=== PATIENT | female | born 1945 | race Caucasian/White ===

== ENCOUNTER 2017-02-28 11:35 | Inpatient (IN) | payer MEDICARE, OTHER ==
--- NOTE | 2017-02-28 11:51 | PDOC ---
History of Present Illness - General Chief Complaint: Pain, Acute Stated Complaint: LT LEG PAIN Time Seen by Provider: 02/28/17 11:50 - History of Present Illness Initial Comments: 02/28/17 11:50 Ms. Burnette is a 72 yo female with a significant past medical history of several prior strokes on coumadin, DM, HTN, and hypercholesterolemia who presents to the emergency department with a 3 day history of upper left leg pain she says occurs only when she moves. 1 week ago she reports falling from a stool on top of her bed while trying to clear a bug from the ceiling. Denies any dizziness or unsteadyness - says that she lost her balance on top of the stool, causing her fall. She says that she had significant pain at this time and stayed on the ground for about 5 minutes before getting up. Not sure if she hit her head or not but she denies any LOC or double visiton. She has been ambulating after this but says she has been experiencing a lot of back pain since. Following her fall she reports a week of diarrhea in addition to various aches and pains in her arms and legs. Denies any recent travel, other illness, or hospital visits. Allergies: NKDA Past History - Past Medical History Allergies/Adverse Reactions: Allergies Allergy/AdvReac Type Severity Reaction Status Date / Time No Known Allergies Allergy Verified 02/28/17 11:44 Home Medications: Ambulatory Orders NK [No Known Home Medication] 02/28/17 Diabetes: Yes - Surgical History Abdominal Surgery: Yes (pancreatic.) - Suicide/Smoking/Psychosocial Hx Smoking History: Current every day smoker Number of Cigarettes Smoked Daily: 20 Information on smoking cessation initiated: No Hx Alcohol Use: No Drug/Substance Use Hx: No Review of Systems - Review of Systems Comments:: 02/28/17 11:50 GENERAL/CONSTITUTIONAL: No fever or chills. No weakness. HEAD, EYES, EARS, NOSE AND THROAT: No change in vision. No ear pain or discharge. No sore throat. CARDIOVASCULAR: No chest pain or shortness of breath RESPIRATORY: No cough, wheezing, or hemoptysis. GASTROINTESTINAL: +1 week of nausea with diarrhea, no constipation. GENITOURINARY: No dysuria, frequency, or change in urination. MUSCULOSKELETAL: Lower back pain as well as upper left lower extremity pain on the posterior side. SKIN: No rash NEUROLOGIC: No headache, vertigo, loss of consciousness, or change in strength/ sensation. ENDOCRINE: No increased thirst. No abnormal weight change HEMATOLOGIC/LYMPHATIC: No anemia, easy bleeding, or history of blood clots. ALLERGIC/IMMUNOLOGIC: No hives or skin allergy. *Physical Exam - Vital Signs Last Vital Signs Temp Pulse Resp BP Pulse Ox 97.5 F L 79 18 153/76 97 02/28/17 11:40 02/28/17 11:40 02/28/17 11:40 02/28/17 11:40 02/28/17 11:40 - Physical Exam Comments: 02/28/17 11:51 GENERAL: Awake, alert, and fully oriented, in no acute distress HEAD: No signs of trauma, normocephalic, atraumatic EYES: PERRLA, EOMI, sclera anicteric, conjunctiva clear ENT: Auricles normal inspection, hearing grossly normal, nares patent, oropharynx clear without exudates. Moist mucosa NECK: Normal ROM, supple, no lymphadenopathy, JVD, or masses LUNGS: No distress, speaks full sentences, clear to auscultation bilaterally HEART: Regular rate and rhythm, normal S1 and S2, no murmurs, rubs or gallops, peripheral pulses normal and equal bilaterally. ABDOMEN: Soft, nontender, normoactive bowel sounds. No guarding, no rebound. No masses EXTREMITIES: +C-spine tenderness with central lumbar tenderness as well. Additional swelling noted on upper LLE with hematoma visible slightly caudal to swelling. Varies small similarly aged hematomas noted to knees and arms as well that patient says are also from fall. NEUROLOGICAL: Cranial nerves II through XII grossly intact. Normal speech, normal gait, no focal sensorimotor deficits SKIN: Warm, Dry, normal turgor, no rashes or lesions noted. ED Treatment Course - LABORATORY CBC & Chemistry Diagram: 02/28/17 12:00 02/28/17 12:00 Medical Decision Making - Medical Decision Making 02/28/17 14:22 Patient presents for acute LLE leg pain. While taking HPI history of fall from height ellucidated and patient expressed cervical and lumbar tenderness as well. Head CT, c-spine CT, and Abd/Pelvic CT with reconstitution of lumbar area ordered for evaluation with concurrent CXR. 02/28/17 16:03 All imaging negative for acute pathology, patient's creatinine noted to be elevated to 2.4 as below. PCP's office consulted, labs approximately a year ago had creatinine level of 1.09. Patient has JOSÉ MIGUEL, consulting hospitalist for possible admission. Laboratory Results - last 24 hr 02/28/17 02/28/17 02/28/17 12:00 12:00 12:00 WBC 12.7 H RBC 3.58 L Hgb 10.4 L Hct 31.4 L MCV 87.8 MCH 29.0 MCHC 33.1 RDW 14.3 Plt Count 225 MPV 8.0 Neutrophils % 78.2 Lymphocytes % 12.8 Monocytes % 8.2 Eosinophils % 0.6 Basophils % 0.2 PT with INR 29.10 H INR 2.58 H Sodium Potassium Chloride Carbon Dioxide Anion Gap BUN Creatinine Creat Clearance w eGFR Random Glucose Calcium Total Bilirubin AST ALT Alkaline Phosphatase Total Protein Albumin Urine Color Yellow Urine Appearance Slcloudy Urine pH 5.0 Urine Protein 2+ H Urine Glucose (UA) 3+ H Urine Ketones Negative Urine Blood 2+ H Urine Nitrite Negative Urine Bilirubin Negative Urine Urobilinogen Negative Urine RBC 5 Urine WBC 9 Ur Epithelial Cells Few Urine Bacteria Rare Hyaline Casts 3 02/28/17 12:00 WBC RBC Hgb Hct MCV MCH MCHC RDW Plt Count MPV Neutrophils % Lymphocytes % Monocytes % Eosinophils % Basophils % PT with INR INR Sodium 138 Potassium 4.5 Chloride 103 Carbon Dioxide 27 Anion Gap 8 BUN 38 H Creatinine 2.4 H Creat Clearance w eGFR 19.84 Random Glucose 290 H Calcium 8.1 L Total Bilirubin 0.3 AST 30 ALT 17 Alkaline Phosphatase 72 Total Protein 6.2 L Albumin 3.0 L Urine Color Urine Appearance Urine pH Urine Protein Urine Glucose (UA) Urine Ketones Urine Blood Urine Nitrite Urine Bilirubin Urine Urobilinogen Urine RBC Urine WBC Ur Epithelial Cells Urine Bacteria Hyaline Casts 02/28/17 16:09 *DC/Admit/Observation/Transfer Diagnosis at time of Disposition: Acute kidney injury - Discharge Dispostion Admit: Yes
[2017-02-28] MEDS ORDERED: SODIUM CHLORIDE 1,000 ML IV ONE (12:31)
[2017-02-28 12:46] LABS: BASOPHIL 0.2 % (0-2.0); EOSINOPHIL 0.6 % (0-4.5); MCHC 33.1 g/dl (32.0-36.0); MEAN CELL VOLUME 87.8 fl (80-96); NEUTROPHILS 78.2 % (42.8-82.8); PLATELET COUNT 225 K/MM3 (134-434); RDW 14.3 % (11.6-15.6); WHITE BLOOD COUNT 12.7 K/mm3 (4.0-10.0)
[2017-02-28 12:56] LABS: URINE APPEARANCE SLCLOUDY; URINE BILIRUBIN NEGATIVE (NEGATIVE); URINE BLOOD 2+ (NEGATIVE); URINE COLOR YELLOW; URINE GLUCOSE (UA) 3+ (NEGATIVE); URINE KETONE NEGATIVE (NEGATIVE); URINE NITRITE NEGATIVE (NEGATIVE); URINE PROTEIN 2+ (NEGATIVE); URINE UROBILINOGEN NEGATIVE mg/dL (0.2-1.0)
[2017-02-28 13:05] LABS: INR 2.58 (0.82-1.09); PROTHROMBIN TIME (PATIENT) 29.1 SEC (9.98-11.88)
[2017-02-28 13:07] LABS: URINE BACTERIA RARE /hpf (NONE SEEN); URINE HYALINE CAST 3 /lpf; URINE RBC 5 /hpf (0-3); URINE WBC 9 /hpf (3-5)
[2017-02-28 13:15] LABS: ALK PHOS 72 U/L (45-117); ANION GAP 8 (8-16); BILIRUBIN,TOTAL 0.3 mg/dL (0.2-1.0); CALCIUM 8.1 mg/dL (8.5-10.1); CO2 27 mmol/L (21-32); CREATININE 2.4 mg/dL (0.55-1.02); GLUCOSE,RANDOM 290 mg/dL (74-106); SGOT/AST 30 U/L (15-37); SGPT/ALT 17 U/L (12-78); TOT PROT 6.2 g/dl (6.4-8.2)
--- NOTE | 2017-02-28 13:40 | PDOC ---
Attending Attestation - HPI HPI: 02/28/17 13:47 The patient is a 72 year old female with a significant PMH of diabetes and prior stroke on Coumadin who presents to the emergency department with 2 weeks of midback pain and 3 days of left lower extremity pain. Patient reports falling from about 5 feet 2 weeks ago and landing on back, also hitting her left lower and upper extremities. - Physicial Exam PE: 02/28/17 13:47 Vitals: Triage Vital signs reviewed General Appearance: no acute distress, well nourished well developed, Back: (+) Diffuse lumbar tenderness to palpation. Cardiac: Regular rate and rhythm, no murmurs, no rubs, no gallops, Lungs: Clear to auscultation bilateral, good air movement bilaterally, Abdomen: Soft, nondistended, normal bowel sounds, nontender to palpation Rectal: Normal. Extremities: Full range of motion to all extremities, no cyanosis, clubbing, or edema Skin: (+) Bruising & hematoma to LLE behind knee. Warm and dry, no rashes or lesions Neuro: (+) Decreased sensation below knee in LLE. AOX3; Cranial Nerves 2-12 grossly intact, Strength intact to all extremities. - Medical Decision Making 02/28/17 13:48 Plan: Labs: CMP, PT/INR, Urinalysis Radiology: Head CT, Cervical CT, Abdomen & Pelvis CT, Lower Extremity CT. Chest XR. <Santi Espinal - Last Filed: 02/28/17 14:19> - Resident Resident Name: London Lubin - ED Attending Attestation I have performed the following: I have examined & evaluated the patient, The case was reviewed & discussed with the resident, I agree w/resident's findings & plan, Exceptions are as noted - Medical Decision Making 02/28/17 17:10 Acute on chronic renal insufficiency we'll observe for hydration and further management <Haja Mcknight - Last Filed: 02/28/17 17:10>
[2017-02-28] MEDS ORDERED: SODIUM CHLORIDE 1,000 ML IV STA (15:56)
[2017-02-28 17:01] LABS: URINE LEUK ESTERASE Negative (NEGATIVE)
--- NOTE | 2017-02-28 17:23 | HP ---
CHIEF COMPLAINT: upper left leg pain after falling at home PCP: HISTORY OF PRESENT ILLNESS: Patient is a72 yo female with a significant past medical history of several prior strokes on coumadin, DM, HTN, and hypercholesterolemia who presents to the emergency department complaints of upper left leg pain that occurs with movement. Patient reports falling 1 week ago from a stool while on top of her bed trying to clean her ceiling. She denies any dizziness or vertigo. States she lost her balance on top of the stool and fell. States she had significant pain on left leg since. States she was on the ground after the fall for apx a few minutes before getting up. She denies any LOC and unsure if she hit her head. She has been ambulating but has since experiencing severe pain in her back and left posterior leg. She reports worsening aches and pain. She denies any fever or chills or any other trauma. ER course was notable for: (1) INR 2.58 (2) BUN 38/creat. 2.4 (3) head CT: negative, chronic left parietal infarct (4) WBC 12.7 Recent Travel: PAST MEDICAL HISTORY: hx of stroke (on coumadin) DM, HTN, and hypercholesterolemia PAST SURGICAL HISTORY: Social History: Smokin cigarettes per day Alcohol: socially Drugs: denies Family History: Allergies No Known Allergies Allergy (Verified 02/28/17 11:44) HOME MEDICATIONS: Home Medications Medication Instructions Recorded NK [No Known Home Medication] 02/28/17 REVIEW OF SYSTEMS CONSTITUTIONAL: Absent: fever, chills, diaphoresis, generalized weakness, malaise, loss of appetite, weight change HEENT: Absent: rhinorrhea, nasal congestion, throat pain, throat swelling, difficulty swallowing, mouth swelling, ear pain, eye pain, visual changes CARDIOVASCULAR: Absent: chest pain, syncope, palpitations, irregular heart rate, lightheadedness , peripheral edema RESPIRATORY: Absent: cough, shortness of breath, dyspnea with exertion, orthopnea, wheezing, stridor, hemoptysis GASTROINTESTINAL: Absent: abdominal pain, abdominal distension, nausea, vomiting, diarrhea, constipation, melena, hematochezia GENITOURINARY: Absent: dysuria, frequency, urgency, hesitancy, hematuria, flank pain, genital pain MUSCULOSKELETAL: Absent: myalgia, arthralgia, joint swelling, back pain, neck pain SKIN: Absent: rash, itching, pallor HEMATOLOGIC/IMMUNOLOGIC: Absent: easy bleeding, easy bruising, lymphadenopathy, frequent infections ENDOCRINE: Absent: unexplained weight gain, unexplained weight loss, heat intolerance, cold intolerance NEUROLOGIC: Absent: headache, focal weakness or paresthesias, dizziness, unsteady gait, seizure, mental status changes, bladder or bowel incontinence PSYCHIATRIC: Absent: anxiety, depression, suicidal or homicidal ideation, hallucinations. PHYSICAL EXAMINATION Vital Signs - 24 hr 02/28/17 02/28/17 11:40 16:00 Temperature 97.5 F L Pulse Rate 79 Pulse Rate [ 74 Apical] Respiratory 18 Rate Blood Pressure 153/76 Blood Pressure 149/77 [Left Arm] O2 Sat by Pulse 97 94 L Oximetry (%) GENERAL: Awake, alert, and fully oriented, in no acute distress. HEAD: Normal with no signs of trauma. EYES: Pupils equal, round and reactive to light, extraocular movements intact, sclera anicteric, conjunctiva clear. No lid lag. EARS, NOSE, THROAT: Ears normal, nares patent, oropharynx clear without exudates. Moist mucous membranes. NECK: Normal range of motion, supple without lymphadenopathy, JVD, or masses. LUNGS: Breath sounds equal, clear to auscultation bilaterally. No wheezes, and no crackles. No accessory muscle use. HEART: Regular rate and rhythm, normal S1 and S2 without murmur, rub or gallop. ABDOMEN: Soft, nontender, not distended, normoactive bowel sounds, no guarding, no rebound, no masses. No hepatomegaly or splenomegaly. MUSCULOSKELETAL: Normal range of motion at all joints. No bony deformities or tenderness. No CVA tenderness. UPPER EXTREMITIES: 2+ pulses, warm, well-perfused. No cyanosis. No clubbing. No peripheral edema. LOWER EXTREMITIES: severe pain on left leg, no fracture seen on xray(+) Bruising & hematoma to LLE behind knee. Warm and dry, no rashes or lesions NEUROLOGICAL: Cranial nerves II-XII intact. Normal speech. PSYCHIATRIC: Cooperative. Good eye contact. Appropriate mood and affect. SKIN: Warm, dry, normal turgor, no rashes or lesions noted, normal capillary refill. Laboratory Results - last 24 hr 02/28/17 02/28/17 02/28/17 12:00 12:00 12:00 WBC 12.7 H RBC 3.58 L Hgb 10.4 L Hct 31.4 L MCV 87.8 MCH 29.0 MCHC 33.1 RDW 14.3 Plt Count 225 MPV 8.0 Neutrophils % 78.2 Lymphocytes % 12.8 Monocytes % 8.2 Eosinophils % 0.6 Basophils % 0.2 PT with INR 29.10 H INR 2.58 H Sodium Potassium Chloride Carbon Dioxide Anion Gap BUN Creatinine Creat Clearance w eGFR Random Glucose Calcium Total Bilirubin AST ALT Alkaline Phosphatase Total Protein Albumin Urine Color Yellow Urine Appearance Slcloudy Urine pH 5.0 Ur Specific [place] 1.015 Urine Protein 2+ H Urine Glucose (UA) 3+ H Urine Ketones Negative Urine Blood 2+ H Urine Nitrite Negative Urine Bilirubin Negative Urine Urobilinogen Negative Ur Leukocyte Esterase Negative Urine RBC 5 Urine WBC 9 Ur Epithelial Cells Few Urine Bacteria Rare Hyaline Casts 3 02/28/17 12:00 WBC RBC Hgb Hct MCV MCH MCHC RDW Plt Count MPV Neutrophils % Lymphocytes % Monocytes % Eosinophils % Basophils % PT with INR INR Sodium 138 Potassium 4.5 Chloride 103 Carbon Dioxide 27 Anion Gap 8 BUN 38 H Creatinine 2.4 H Creat Clearance w eGFR 19.84 Random Glucose 290 H Calcium 8.1 L Total Bilirubin 0.3 AST 30 ALT 17 Alkaline Phosphatase 72 Total Protein 6.2 L Albumin 3.0 L Urine Color Urine Appearance Urine pH Ur Specific [place] Urine Protein Urine Glucose (UA) Urine Ketones Urine Blood Urine Nitrite Urine Bilirubin Urine Urobilinogen Ur Leukocyte Esterase Urine RBC Urine WBC Ur Epithelial Cells Urine Bacteria Hyaline Casts ASSESSMENT/PLAN: Patient is a72 yo female with a significant past medical history of several prior strokes on coumadin, DM, HTN, and hypercholesterolemia who presents to the emergency department complaints of upper left leg pain that occurs with movement. Patient reports falling 1 week ago from a stool while on top of her bed trying to clean her ceiling. She denies any dizziness or vertigo. States she lost her balance on top of the stool and fell. States she had significant pain on left leg since. States she was on the ground after the fall for apx a few minutes before getting up. She denies any LOC and unsure if she hit her head. She has been ambulating but has since experiencing severe pain in her back and left posterior leg. She reports worsening aches and pain. She denies any fever or chills or any other trauma. Imaging: Head CT: No evidence of acute ICH, focal extra axial collection or acute territorial transcortical infarct. There is a chronic left parietal lobe infarct. Generalized age related volume loss. Mild to moderate ischemic changes scattered within the deep and subcortical cerebral white matter gangiocapsular regions. Cervical spine CT: No evidence of acute fracture in the cervical spine. Trace anterolisthesis of C4 on C5 measuring 2mm. Status post discectomy and anterior instrumented fusion from C5 through C7. CT abdomen/pelvis: no sigs of acute traumatic visceral injury. A 1.7 x 1.8 cm peripherally calcified splenic artery aneurysm. A 7mm peripherally calcified right renal artery aneurysm. Muscular Skeletal Mechanical fall, acute Monitor CPK, monitor pain levels Bleeding risk with coumadin, inr stable Head CT negative Monitor for worsening LLE hematoma Pain management with Ultram Neuro: History of several prior strokes On Coumadin 5mg @ home, continue Monitor INR Monitor hmg/hct s/p fall Endocrine: Diabetes, acute Monitor BGMs, Novolog, hmga1c Monitor blood sugars Hypertension, chronic Monitor BP Renal: JOSÉ MIGUEL: Creat 2.4, CPK check for possible rhabdo IVF @100cc/hr F.E.N. Fluids: NS @ 100cc/hr Electrolytes: monitor Nutrition: diabetic diet Prophylaxis: Coumadin per INR Protonix for GI Physical therapy evaluation Disposition: full code
[2017-02-28] MEDS ORDERED: WARFARIN NA 5 MG TABLET (UD) PO ONE (18:35)
[2017-02-28] MEDS: traMADol HCL 50 MG TABLET PO PRN (20:40)
[2017-02-28] MEDS: amLODIPine BESYLATE 5 MG TABLET (FP) PO SCH (20:42)
[2017-02-28] MEDS: INSULIN SLIDING SCALE (NOVOLOG) 1 VIAL SQ SCH (21:16)
[2017-02-28 23:49] VITALS: BMI 19.6
[2017-03-01] MEDS: INSULIN SLIDING SCALE (NOVOLOG) 1 VIAL SQ SCH ×4 (06:03→21:29)
[2017-03-01] MEDS: GABAPENTIN 300 MG CAPSULE (FP) PO SCH ×3 (06:03→21:29)
[2017-03-01] MEDS: SODIUM CHLORIDE 1,000 ML IV SCH ×2 (06:03→16:25)
[2017-03-01 07:57] LABS: BASOPHIL 0.2 % (0-2.0); EOSINOPHIL 0.9 % (0-4.5); MCHC 33.3 g/dl (32.0-36.0); MEAN CELL VOLUME 87.2 fl (80-96); MEAN PLT VOLUME 8.2 fl (7.5-11.1); NEUTROPHILS 75.1 % (42.8-82.8); PLATELET COUNT 208 K/MM3 (134-434); WHITE BLOOD COUNT 9.9 K/mm3 (4.0-10.0)
[2017-03-01 08:06] LABS: INR 3.96 (0.82-1.09); PROTHROMBIN TIME (PATIENT) 44.7 SEC (9.98-11.88)
[2017-03-01 08:20] LABS: ALBUMIN 2.4 g/dl (3.4-5.0); ALK PHOS 59 U/L (45-117); ANION GAP 8 (8-16); BILIRUBIN,TOTAL 0.4 mg/dL (0.2-1.0); CALCIUM 7.7 mg/dL (8.5-10.1); CO2 24 mmol/L (21-32); CREATININE 1.7 mg/dL (0.55-1.02); GLUCOSE,RANDOM 102 mg/dL (74-106); MAGNESIUM 1.6 mg/dL (1.8-2.4); SGOT/AST 23 U/L (15-37); SGPT/ALT 13 U/L (12-78); TOT PROT 5.1 g/dl (6.4-8.2)
[2017-03-01] MEDS: traMADol HCL 50 MG TABLET PO PRN ×3 (09:22→18:02)
[2017-03-01] MEDS: DULoxetine HCL 30 MG CAPSULE.DR (FP) PO SCH (09:23)
[2017-03-01] MEDS: ATENOLOL 25 MG TABLET (FP) PO SCH (09:23)
[2017-03-01] MEDS: amLODIPine BESYLATE 5 MG TABLET (FP) PO SCH (09:24)
[2017-03-01 09:36] LABS: URINE APPEARANCE CLEAR; URINE BILIRUBIN NEGATIVE (NEGATIVE); URINE BLOOD 1+ (NEGATIVE); URINE COLOR LTYELLOW; URINE GLUCOSE (UA) 2+ (NEGATIVE); URINE KETONE NEGATIVE (NEGATIVE); URINE NITRITE NEGATIVE (NEGATIVE); URINE UROBILINOGEN NEGATIVE mg/dL (0.2-1.0)
[2017-03-01 09:42] LABS: URINE PROTEIN 1+ (NEGATIVE)
[2017-03-01 09:44] LABS: URINE MUCUS RARE; URINE RBC 4 /hpf (0-3); URINE WBC 2 /hpf (3-5)
[2017-03-01] MEDS ORDERED: DULoxetine HCL 30 MG CAPSULE.DR (FP) PO SCH (10:00)
[2017-03-01] MEDS ORDERED: DULoxetine HCL 60 MG CAPSULE.DR PO SCH (10:00)
[2017-03-01] MEDS ORDERED: amLODIPine BESYLATE 5 MG TABLET (FP) PO SCH (10:00)
[2017-03-01] MEDS ORDERED: MAGNESIUM OXIDE 400 MG TABLET (FP) PO ONE (11:15)
[2017-03-01 11:22] LABS: URINE LEUK ESTERASE Negative (NEGATIVE)
--- NOTE | 2017-03-01 13:13 | EKG ---
Test Reason : Blood Pressure : / mmHG Vent. Rate : 075 BPM Atrial Rate : 075 BPM P-R Int : 146 ms QRS Dur : 078 ms QT Int : 344 ms P-R-T Axes : 067 052 076 degrees QTc Int : 384 ms NORMAL SINUS RHYTHM POOR R WAVE PROGRESSION ABNORMAL ECG WHEN COMPARED WITH ECG OF 03-JAN-2008 09:46, PREMATURE ATRIAL COMPLEXES ARE NO LONGER PRESENT QT HAS SHORTENED CLINICAL CORRELATION IS RECOMMENDED Confirmed by JOSUE ALMNAZAR, ALESSANDRO ([id number]) on 03/01/2017 1:12:33 PM Referred By: Confirmed By:ALESSANDRO SALAS MD
--- NOTE | 2017-03-01 15:50 | PN ---
Physical Exam: SUBJECTIVE: Patient seen and examined. OBJECTIVE: Vital Signs Period Temp Pulse Resp BP Sys/Thao Pulse Ox Last 24 Hr 97.6 F-98.7 F 66-76 18-18 146-178/63-80 95 GENERAL: Awake, alert, and fully oriented, in no acute distress. HEAD: Normal with no signs of trauma. EYES: Pupils equal, round and reactive to light, extraocular movements intact, sclera anicteric, conjunctiva clear. No lid lag. EARS, NOSE, THROAT: Ears normal, nares patent, oropharynx clear without exudates. Moist mucous membranes. NECK: Normal range of motion, supple without lymphadenopathy, JVD, or masses. LUNGS: Breath sounds equal, clear to auscultation bilaterally. No wheezes, and no crackles. No accessory muscle use. HEART: Regular rate and rhythm, normal S1 and S2 without murmur, rub or gallop. ABDOMEN: Soft, nontender, not distended, normoactive bowel sounds, no guarding, no rebound, no masses. No hepatomegaly or splenomegaly. MUSCULOSKELETAL: Normal range of motion at all joints. No bony deformities or tenderness. No CVA tenderness. UPPER EXTREMITIES: 2+ pulses, warm, well-perfused. No cyanosis. No clubbing. No peripheral edema. LOWER EXTREMITIES: severe pain on left leg, no fracture seen on xray(+) Bruising & hematoma to LLE behind knee. Warm and dry, no rashes or lesions, left leg edema, negative for DVT. NEUROLOGICAL: Cranial nerves II-XII intact. Normal speech. PSYCHIATRIC: Cooperative. Good eye contact. Appropriate mood and affect. SKIN: Warm, dry, normal turgor, no rashes or lesions noted, normal capillary refill. Laboratory Results - last 24 hr 02/28/17 03/01/17 03/01/17 21:15 05:45 06:30 WBC RBC Hgb Hct MCV MCH MCHC RDW Plt Count MPV Neutrophils % Lymphocytes % Monocytes % Eosinophils % Basophils % PT with INR INR Sodium Potassium Chloride Carbon Dioxide Anion Gap BUN Creatinine Creat Clearance w eGFR POC Glucometer 254 122 Random Glucose Calcium Magnesium Total Bilirubin AST ALT Alkaline Phosphatase Creatine Kinase Creatine Kinase Index CK-MB (CK-2) Total Protein Albumin Urine Color Ltyellow Urine Appearance Clear Urine pH 5.0 Ur Specific [place] 1.010 Urine Protein 1+ H Urine Glucose (UA) 2+ H Urine Ketones Negative Urine Blood 1+ H Urine Nitrite Negative Urine Bilirubin Negative Urine Urobilinogen Negative Ur Leukocyte Esterase Negative Urine RBC 4 Urine WBC 2 Ur Epithelial Cells Rare Urine Mucus Rare 03/01/17 03/01/17 03/01/17 07:25 07:25 07:25 WBC 9.9 RBC 3.10 L Hgb 9.0 L D Hct 27.0 L MCV 87.2 MCH 29.0 MCHC 33.3 RDW 14.0 Plt Count 208 MPV 8.2 Neutrophils % 75.1 Lymphocytes % 16.2 D Monocytes % 7.6 Eosinophils % 0.9 Basophils % 0.2 PT with INR 44.70 H INR 3.96 H D Sodium 141 Potassium 3.9 Chloride 109 H Carbon Dioxide 24 Anion Gap 8 BUN 31 H Creatinine 1.7 H D Creat Clearance w eGFR 29.54 POC Glucometer Random Glucose 102 D Calcium 7.7 L Magnesium 1.6 L Total Bilirubin 0.4 D AST 23 D ALT 13 D Alkaline Phosphatase 59 Creatine Kinase Creatine Kinase Index CK-MB (CK-2) Total Protein 5.1 L Albumin 2.4 L Urine Color Urine Appearance Urine pH Ur Specific [place] Urine Protein Urine Glucose (UA) Urine Ketones Urine Blood Urine Nitrite Urine Bilirubin Urine Urobilinogen Ur Leukocyte Esterase Urine RBC Urine WBC Ur Epithelial Cells Urine Mucus 03/01/17 03/01/17 07:25 11:07 WBC RBC Hgb Hct MCV MCH MCHC RDW Plt Count MPV Neutrophils % Lymphocytes % Monocytes % Eosinophils % Basophils % PT with INR INR Sodium Potassium Chloride Carbon Dioxide Anion Gap BUN Creatinine Creat Clearance w eGFR POC Glucometer 275 Random Glucose Calcium Magnesium Total Bilirubin AST ALT Alkaline Phosphatase Creatine Kinase 287 H Creatine Kinase Index 0.7 CK-MB (CK-2) 2.079 Total Protein Albumin Urine Color Urine Appearance Urine pH Ur Specific [place] Urine Protein Urine Glucose (UA) Urine Ketones Urine Blood Urine Nitrite Urine Bilirubin Urine Urobilinogen Ur Leukocyte Esterase Urine RBC Urine WBC Ur Epithelial Cells Urine Mucus Active Medications Generic Name Dose Route Start Last Admin Trade Name Freq PRN Reason Stop Dose Admin Amlodipine Besylate 5 mg 02/28/17 19:30 03/01/17 09:24 Norvasc - PO 5 mg DAILY JOSELINE Administration Atenolol 25 mg 03/01/17 10:00 03/01/17 09:23 Tenormin - PO 25 mg DAILY JOSELINE Administration Duloxetine HCl 90 mg 03/01/17 10:00 03/01/17 09:23 Cymbalta - PO 90 mg DAILY JOSELINE Administration Gabapentin 300 mg 03/01/17 06:00 03/01/17 13:42 Neurontin - PO 300 mg TID JOSELINE Administration Sodium Chloride 1,000 mls @ 100 mls/hr 02/28/17 18:45 03/01/17 06:03 Normal Saline - IV 100 mls/hr ASDIR JOSELINE Administration Insulin Aspart 1 vial 02/28/17 22:00 03/01/17 11:47 Novolog Vial Sliding Scale - SQ 6 units ACHS JOSELINE Administration Protocol Tramadol HCl 50 mg 02/28/17 18:50 03/01/17 13:42 Ultram - PO 50 mg Q4H PRN Administration PAIN ASSESSMENT/PLAN: Patient is a 72 yo female with a significant past medical history of several prior strokes on coumadin, DM, HTN, and hypercholesterolemia who presents to the emergency department complaints of upper left leg pain that occurs with movement. Patient reports falling 1 week ago from a stool while on top of her bed trying to clean her ceiling. She denies any dizziness or vertigo. States she lost her balance on top of the stool and fell. States she had significant pain on left leg since. States she was on the ground after the fall for apx a few minutes before getting up. She denies any LOC and unsure if she hit her head. She has been ambulating but has since experiencing severe pain in her back and left posterior leg. She reports worsening aches and pain. She denies any fever or chills or any other trauma. Imaging: Head CT: No evidence of acute ICH, focal extra axial collection or acute territorial transcortical infarct. There is a chronic left parietal lobe infarct. Generalized age related volume loss. Mild to moderate ischemic changes scattered within the deep and subcortical cerebral white matter gangiocapsular regions. Cervical spine CT: No evidence of acute fracture in the cervical spine. Trace anterolisthesis of C4 on C5 measuring 2mm. Status post discectomy and anterior instrumented fusion from C5 through C7. CT abdomen/pelvis: no sigs of acute traumatic visceral injury. A 1.7 x 1.8 cm peripherally calcified splenic artery aneurysm. A 7mm peripherally calcified right renal artery aneurysm. Vascular Study left leg: negative for DVT Muscular Skeletal Mechanical fall, acute Monitor CPK, monitor pain levels Bleeding risk with coumadin, monitor INR Head CT negative, imaging as above Monitor for worsening LLE hematoma Pain management with Ultram Neuro: History of several prior strokes On Coumadin 5mg @ home, will hold for elevated INR (3.96) Monitor INR and resume Coumadin if INR (2-3) Monitor hmg/hct s/p fall Endocrine: Diabetes, acute Monitor BGMs, Novolog, hmga1c Monitor blood sugars Hypertension, chronic Monitor BP Renal: JOSÉ MIGUEL: Creat 2.4 >1.7, CPK initially elevated, now trending down, continue hydration Likely secondary to rhabdomylysis s/p fall Urine myoglobin ordered IVF @100cc/hr F.E.N. Fluids: NS @ 100cc/hr Electrolytes: monitor Nutrition: diabetic diet Prophylaxis: Coumadin per INR Protonix for GI Physical therapy evaluation prior to discharge Disposition: full code
[2017-03-01] MEDS ORDERED: WARFARIN NA 5 MG TABLET (UD) PO SCH (18:00)
[2017-03-01] MEDS ORDERED: INSULIN (NOVOLOG) ASPART 100 UNITS/ML 10ML VIAL ONE (21:01)
[2017-03-02] MEDS: traMADol HCL 50 MG TABLET PO PRN ×3 (01:12→21:36)
[2017-03-02] MEDS: INSULIN SLIDING SCALE (NOVOLOG) 1 VIAL SQ SCH ×4 (06:22→21:40)
[2017-03-02] MEDS: GABAPENTIN 300 MG CAPSULE (FP) PO SCH ×3 (06:22→21:36)
[2017-03-02] MEDS: SODIUM CHLORIDE 1,000 ML IV SCH ×3 (06:25→23:50)
[2017-03-02 08:05] LABS: ALBUMIN 2.4 g/dl (3.4-5.0); ALK PHOS 60 U/L (45-117); ANION GAP 5 (8-16); BILIRUBIN,TOTAL 0.6 mg/dL (0.2-1.0); CALCIUM 7.6 mg/dL (8.5-10.1); CO2 27 mmol/L (21-32); CREATININE 1.9 mg/dL (0.55-1.02); GLUCOSE,RANDOM 108 mg/dL (74-106); SGOT/AST 34 U/L (15-37); SGPT/ALT 21 U/L (12-78); TOT PROT 5.1 g/dl (6.4-8.2)
[2017-03-02 08:17] LABS: BASOPHIL 1.3 % (0-2.0); MCH 28.9 pg (25.7-33.7); MCHC 33.1 g/dl (32.0-36.0); MEAN CELL VOLUME 87.1 fl (80-96); MEAN PLT VOLUME 7.9 fl (7.5-11.1); NEUTROPHILS 65.6 % (42.8-82.8); PLATELET COUNT 239 K/MM3 (134-434); RDW 14.1 % (11.6-15.6); WHITE BLOOD COUNT 9.5 K/mm3 (4.0-10.0)
[2017-03-02 08:42] LABS: PROTHROMBIN TIME (PATIENT) 50.1 SEC (9.98-11.88)
[2017-03-02 08:49] LABS: INR 4.43 (0.82-1.09)
[2017-03-02] MEDS: DULoxetine HCL 30 MG CAPSULE.DR (FP) PO SCH (09:26)
[2017-03-02] MEDS: ATENOLOL 25 MG TABLET (FP) PO SCH ×2 (09:26→21:36)
[2017-03-02] MEDS: amLODIPine BESYLATE 5 MG TABLET (FP) PO SCH (09:26)
--- NOTE | 2017-03-02 22:12 | PN ---
Physical Exam: SUBJECTIVE: Patient seen and examined at bedside. Primary complaint is left leg pain since fall two weeks ago. Patient reports history of pancreaticojejunostomy in 1985. OBJECTIVE: Vital Signs Period Temp Pulse Resp BP Sys/Thao Pulse Ox Last 24 Hr 98.1 F 61 20 129/66 GENERAL: The patient is awake, alert, and fully oriented, in no acute distress. LUNGS: Breath sounds equal, clear to auscultation bilaterally, no wheezes, no crackles, no accessory muscle use. Tenderness left 8th rib. HEART: Regular rate and rhythm, S1, S2 without murmur, rub or gallop. ABDOMEN: Soft, nontender, nondistended, normoactive bowel sounds, no guarding, no rebound EXTREMITIES: Large ecchymotic area behind left knee. Left leg tender with any movement. NEUROLOGICAL: Cranial nerves II through XII grossly intact. Normal speech, gait not observed. Laboratory Results - last 24 hr 03/01/17 03/01/17 03/02/17 07:25 21:25 06:10 WBC 9.5 RBC 2.85 L Hgb 8.2 L Hct 24.8 L MCV 87.1 MCH 28.9 MCHC 33.1 RDW 14.1 Plt Count 239 MPV 7.9 Neutrophils % 65.6 Lymphocytes % 21.8 D Monocytes % 7.3 Eosinophils % 4.0 D Basophils % 1.3 D PT with INR INR Sodium Potassium Chloride Carbon Dioxide Anion Gap BUN Creatinine Creat Clearance w eGFR POC Glucometer 251 Random Glucose Hemoglobin A1c % 7.3 H Calcium Total Bilirubin AST ALT Alkaline Phosphatase Total Protein Albumin 03/02/17 03/02/17 03/02/17 06:10 06:10 06:21 WBC RBC Hgb Hct MCV MCH MCHC RDW Plt Count MPV Neutrophils % Lymphocytes % Monocytes % Eosinophils % Basophils % PT with INR 50.10 H INR 4.43 H* Sodium 141 Potassium 4.1 Chloride 109 H Carbon Dioxide 27 Anion Gap 5 L BUN 33 H Creatinine 1.9 H Creat Clearance w eGFR 25.98 POC Glucometer 143 Random Glucose 108 H Hemoglobin A1c % Calcium 7.6 L Total Bilirubin 0.6 D AST 34 D ALT 21 D Alkaline Phosphatase 60 Total Protein 5.1 L Albumin 2.4 L 03/02/17 03/02/17 11:19 16:23 WBC RBC Hgb Hct MCV MCH MCHC RDW Plt Count MPV Neutrophils % Lymphocytes % Monocytes % Eosinophils % Basophils % PT with INR INR Sodium Potassium Chloride Carbon Dioxide Anion Gap BUN Creatinine Creat Clearance w eGFR POC Glucometer 285 154 Random Glucose Hemoglobin A1c % Calcium Total Bilirubin AST ALT Alkaline Phosphatase Total Protein Albumin Active Medications Generic Name Dose Route Start Last Admin Trade Name Amos PRN Reason Stop Dose Admin Amlodipine Besylate 5 mg 02/28/17 19:30 03/02/17 09:26 Norvasc - PO 5 mg DAILY JOSELINE Administration Atenolol 25 mg 03/02/17 22:00 Tenormin - PO BID JOSELINE Duloxetine HCl 90 mg 03/01/17 10:00 03/02/17 09:26 Cymbalta - PO 90 mg DAILY JOSELINE Administration Gabapentin 300 mg 03/01/17 06:00 03/02/17 13:45 Neurontin - PO 300 mg TID JOSELINE Administration Sodium Chloride 1,000 mls @ 100 mls/hr 02/28/17 18:45 03/02/17 14:22 Normal Saline - IV 100 mls/hr ASDIR JOSELINE Administration Insulin Aspart 1 vial 02/28/17 22:00 03/02/17 17:53 Novolog Vial Sliding Scale - SQ 2 units ACHS JOSELINE Administration Protocol ASSESSMENT/PLAN 72 year-old female with a PMH significant for several CVAs on coumadin, HTN, HLD , and NIDDM, who presents to the emergency department with complaint of left leg pain following a fall 2 weeks ago. Left leg pain --imaging negative for fracture --CTAP: thickening of multiple muscles of left thigh, likely intramuscular hematomas --ecchymosis seen posterior left popliteal space --h/h 10.4-->8.2, repeat in am Dilated common bile duct h/o pancreatitis s/p pancreaticojejeunostomy 1985 --CTAP shows 10mm CBD dilation with tapering to pancreatic head --LFTs are wnl; will repeat --US ordered h/o CVA on comadin with supratherapeutic INR --INR 2.58 on admission, now 4.43 --last dose coumadin 5mg given on 02/28, continue to hold --continue to monitor h/h and watch for signs of active bleeding --please verify again with local pharmacy/PCP (Dr. Layne, [place], [place]) patient's home dose of coumadin NIDDM --Novolog sliding scale coverage Hypertension --BP elevated, increased atenolol to BID JOSÉ MIGUEL --Cr 2.4 on admission, 1.9 today, baseline unknown --continue IV fluids --urine studies pending DVT prophylaxis: INR supratherapeutic, continue to hold coumadin Physical therapy evaluation Disposition: requires continued inpatient care. Full code. Visit type - Emergency Visit Emergency Visit: Yes ED Registration Date: 03/02/17 Care time: The patient presented to the Emergency Department on the above date and was hospitalized for further evaluation of their emergent condition. - New Patient This patient is new to me today: Yes Date on this admission: 03/02/17 - Critical Care Critical Care patient: No
[2017-03-03] MEDS: GABAPENTIN 300 MG CAPSULE (FP) PO SCH ×2 (06:05→13:40)
[2017-03-03] MEDS: INSULIN SLIDING SCALE (NOVOLOG) 1 VIAL SQ SCH ×4 (06:06→22:06)
[2017-03-03 07:07] LABS: BASOPHIL 2.9 % (0-2.0); EOSINOPHIL 6.4 % (0-4.5); MCH 29.4 pg (25.7-33.7); MCHC 33.8 g/dl (32.0-36.0); MEAN PLT VOLUME 7.9 fl (7.5-11.1); NEUTROPHILS 58.1 % (42.8-82.8); PLATELET COUNT 223 K/MM3 (134-434); RDW 14.8 % (11.6-15.6)
[2017-03-03 07:12] LABS: INR 2.98 (0.82-1.09); PROTHROMBIN TIME (PATIENT) 33.7 SEC (9.98-11.88)
[2017-03-03 07:30] LABS: ALBUMIN 2.4 g/dl (3.4-5.0); BILIRUBIN,DIRECT 0.1 mg/dL (0.0-0.2); BILIRUBIN,TOTAL 0.5 mg/dL (0.2-1.0); TOT PROT 5.1 g/dl (6.4-8.2)
[2017-03-03 07:32] LABS: ALBUMIN 2.4 g/dl (3.4-5.0); ALK PHOS 64 U/L (45-117); ANION GAP 9 (8-16); BILIRUBIN,TOTAL 0.5 mg/dL (0.2-1.0); CALCIUM 7.4 mg/dL (8.5-10.1); CO2 24 mmol/L (21-32); CREATININE 1.9 mg/dL (0.55-1.02); GLUCOSE,RANDOM 126 mg/dL (74-106); MAGNESIUM 1.9 mg/dL (1.8-2.4); PHOSPHOROUS 3.2 mg/dL (2.5-4.9); SGOT/AST 39 U/L (15-37); SGPT/ALT 24 U/L (12-78); TOT PROT 5.1 g/dl (6.4-8.2)
--- NOTE | 2017-03-03 08:29 | PN ---
Physical Exam: SUBJECTIVE: Patient seen and examined. No nausea, vomiting, fever or chills. Denies SOB, CP, abdominal pain. Complains of L leg pain, which is worse with ambulation. OBJECTIVE: Vital Signs Period Temp Pulse Resp BP Sys/Thao Pulse Ox Last 24 Hr 98.1 F-98.4 F 61-72 14-20 116-139/59-66 95 GENERAL: aaox3, nad EYES: sclera anicteric, conjunctiva clear ENT: moist mucous membranes LUNGS: CTAB, no wheezes, rales, or rhonchi HEART: rrr, normal S1/S2, no murmur, rub or gallop ABDOMEN: Soft, ntnd, normoactive bowel sounds LOWER EXTREMITIES: 2+ pulses, wwp b/l, L thigh firm, swollen, and ttp compared to R, +ecchymosis posteriorly L upper leg CBC, BMP 03/03/17 06:15 03/03/17 05:40 Hepatic Panel Total Bilirubin 0.5 mg/dL (0.2-1.0) 03/03/17 05:40 Direct Bilirubin 0.1 mg/dL (0.0-0.2) 03/03/17 05:40 AST 39 U/L (15-37) H 03/03/17 05:40 ALT 24 U/L (12-78) 03/03/17 05:40 Alkaline Phosphatase 64 U/L (45-117) 03/03/17 05:40 Albumin 2.4 g/dl (3.4-5.0) L 03/03/17 05:40 INR, PTT INR 2.98 (0.82-1.09) H D 03/03/17 05:40 Ca - 7.4 (corrected 8.7) Phos - 3.2 Mg - 1.9 Lipase - 183 Urine Studies 03/03/17 03/03/17 03/03/17 03:30 03:30 03:30 U Random Total Protein 75 H Ur Random Sodium 35 Ur Random Potassium 42.3 Ur Random Chloride 65 Urine Creatinine 78.3 Microbiology 03/02/17 09:35 Urine - Urine Clean Catch Urine Culture - Diphtheroid/ Corynebacterium 02/28/17 21:00 Blood - Peripheral Venous Blood Culture - Preliminary NO GROWTH OBTAINED AFTER 48 HOURS, INCUBATION TO CONTINUE FOR 3 DAYS. 02/28/17 21:00 Blood - Peripheral Venous Blood Culture - Preliminary NO GROWTH OBTAINED AFTER 48 HOURS, INCUBATION TO CONTINUE FOR 3 DAYS. 02/28/17 12:00 Urine - Urine Clean Catch Urine Culture - Final Contaminated: Please Repeat Imaging: Abd U/S 03/03/17: dilated CBD (1.1cm), no gallstones of GB wall thickening CXR 03/03/17: no Rib fractures Active Medications Acetaminophen (Tylenol -) 325 mg PO Q4H PRN PRN Reason: PAIN Stop: 03/06/17 17:17 Last Admin: 03/03/17 18:01 Dose: 325 mg Amlodipine Besylate (Norvasc -) 5 mg PO DAILY [facility] Last Admin: 03/03/17 10:38 Dose: 5 mg Atenolol (Tenormin -) 25 mg PO BID [facility] Last Admin: 03/03/17 10:38 Dose: 25 mg Duloxetine HCl (Cymbalta -) 90 mg PO DAILY [facility] Last Admin: 03/03/17 10:37 Dose: 90 mg Gabapentin (Neurontin -) 800 mg PO TID [facility] Sodium Chloride (Normal Saline -) 1,000 mls @ 75 mls/hr IV ASDIR [facility] Last Admin: 03/03/17 18:09 Dose: 75 mls/hr Insulin Aspart (Novolog Vial Sliding Scale -) 1 vial SQ ACHS [facility] PRN Reason: Protocol Last Admin: 03/03/17 18:03 Dose: 2 units Oxycodone HCl (Roxicodone -) 5 mg PO Q4H PRN PRN Reason: PAIN Last Admin: 03/03/17 18:02 Dose: 5 mg Tramadol HCl (Ultram -) 50 mg PO Q6H PRN PRN Reason: PAIN Last Admin: 03/03/17 10:42 Dose: 50 mg ASSESSMENT/PLAN: 72yo F with PMH of multiple CVAs (on Coumadin), DM, HTN, and HLD who presented on 02/28 with LLE pain s/p mechanical fall (denies LOC, hitting head, Head CT neg hemorrhage) who was found to have JOSÉ MIGUEL and LLE intramuscular hematoma. Per notes, L posterior knee ecchymosis appears to be extending superiorly to upper posterior thigh, possibly correlating with Hgb drop from 8.2 to 7.4 this AM. In addition, w/u revealed dilated CBD (1.1cm) w/o e/o cholecystitis (no stones, sludge, or wall thickening; LFTs wnl). GI has been consulted, and planning MRCP for further evaluation. #L leg pain A: likely 2/2 evolving intramusclular hematoma -Monitor INR, hold Coumadin for now -Percocet, tramadol prn for pain #Dilated CBD A: asx, Lipase and LFTs wnl, no e/o cholelithiasis/cholangitis on imaging -GI consulted, planning MRCP #normocytic anemia A: likely 2/2 acute blood -Repeat CBC in evening -f/u Fe studies (serum Fe, TIBC, iron saturation, ferritin) #JOSÉ MIGUEL A: acute vs acute on chronic (per ED note, 2016 out-pt Cr 1.09), FeNa <1% suggestive of pre-renal likely 2/2 dehydration -Trend BUN, Cr -Continue IVF #DM A: A1c 7.3% (03/01/17) -Hold home metformin -BGM and ISS ACHS #HTN -Continue home Atenolol 25mg PO BID and Amlodipine 5mg PO daily #FEN -NS @ 75cc/hr -lytes wnl -Diabetic/Na controlled diet #PPX -DVT - INR supratherapeutic -GI - not indicated -PT on board #Dispo: Continue monitoring on floors FULL code d/w Dr. Verenice De Anda MD PGY-1 Visit type - Emergency Visit Emergency Visit: No - New Patient This patient is new to me today: Yes Date on this admission: 03/03/17 - Critical Care Critical Care patient: No
[2017-03-03] MEDS: DULoxetine HCL 30 MG CAPSULE.DR (FP) PO SCH (10:37)
[2017-03-03] MEDS: amLODIPine BESYLATE 5 MG TABLET (FP) PO SCH (10:38)
[2017-03-03] MEDS: ATENOLOL 25 MG TABLET (FP) PO SCH ×2 (10:38→22:07)
[2017-03-03] MEDS: traMADol HCL 50 MG TABLET PO PRN (10:42)
--- NOTE | 2017-03-03 11:08 | CON.GI ---
Consult Consult Specialty:: GI Referred by:: service Reason for Consultation:: abnormal imaging of the biliary tract - History of Present Illness History of Present Illness: Chart reviewed. ED and H&P records noted The patient offers no GI-related complaints at his time however was noted on a non-contrast CT to have a normal GB and dilated CBD ~10 mm, tapering at pancreatic head. US confirmed CBD 1.1 cm. No intraductal lesions noted. No records of dyspepsia, epigastric pain, nausea, vomiting, jaundice, weight loss, fever, or chills. 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 - Alcohol/Substance Use Hx Alcohol Use: No - Smoking History Smoking history: Current every day smoker Aproximately how many cigarettes per day: 20 Home Medications - Allergies Allergies/Adverse Reactions: Allergies Allergy/AdvReac Type Severity Reaction Status Date / Time amoxicillin Allergy Severe Swelling Verified 03/02/17 17:48 - Home Medications Home Medications: Ambulatory Orders Amlodipine Besylate 5 mg PO DAILY 02/28/17 Atenolol [Tenormin -] 25 mg PO DAILY 02/28/17 Duloxetine HCl [Cymbalta] 30 mg PO DAILY 02/28/17 Duloxetine HCl [Cymbalta] 60 mg PO DAILY 02/28/17 Gabapentin 300 mg PO TID 02/28/17 Levocetirizine Dihydrochloride 5 mg PO DAILY 02/28/17 Metformin HCl [Glucophage] 1,000 mg PO BID 02/28/17 Warfarin Sodium [Coumadin] 5 mg PO DAILY 02/28/17 Family Disease History - Family Disease History Family History: Unremarkable (non-contributory) Review of Systems Findings/Remarks: Please refer to HPI and H&P Physical Exam-GI Vital Signs: Vital Signs Temperature 98.4 F 03/03/17 06:00 Pulse Rate 65 03/03/17 06:00 Respiratory Rate 16 03/03/17 06:00 Blood Pressure 139/63 03/03/17 06:00 O2 Sat by Pulse Oximetry (%) 95 03/02/17 22:09 Constitutional: Yes: No Distress, Calm Eyes: Yes: Conjunctiva Clear. No: Sclera Icterus HENT: Yes: Normocephalic Neck: Yes: Supple Cardiovascular: Yes: Regular Rate and Rhythm Respiratory: Yes: Regular ...Auscultate: Yes: Normoactive Bowel Sounds ...Palpate: Yes: Soft. No: Guarding, Mass, Pulsatile Mass, Tenderness Integumentary: No: Jaundice Neurological: Yes: Alert Labs: CBC, BMP 03/03/17 05:40 03/03/17 05:40 INR, PTT INR 2.98 (0.82-1.09) H D 03/03/17 05:40 CBCD WBC 8.0 K/mm3 (4.0-10.0) 03/03/17 05:40 RBC 2.51 M/mm3 (3.60-5.2) L 03/03/17 05:40 Hgb 7.4 GM/dL (10.7-15.3) L 03/03/17 05:40 Hct 21.8 % (32.4-45.2) L 03/03/17 05:40 MCV 87.0 fl (80-96) 03/03/17 05:40 MCHC 33.8 g/dl (32.0-36.0) 03/03/17 05:40 RDW 14.8 % (11.6-15.6) 03/03/17 05:40 Plt Count 223 K/MM3 (134-434) 03/03/17 05:40 MPV 7.9 fl (7.5-11.1) 03/03/17 05:40 CMP Sodium 143 mmol/L (136-145) 03/03/17 05:40 Potassium 4.6 mmol/L (3.5-5.1) 03/03/17 05:40 Chloride 110 mmol/L (98-107) H 03/03/17 05:40 Carbon Dioxide 24 mmol/L (21-32) 03/03/17 05:40 Anion Gap 9 (8-16) 03/03/17 05:40 BUN 33 mg/dL (7-18) H 03/03/17 05:40 Creatinine 1.9 mg/dL (0.55-1.02) H 03/03/17 05:40 Creat Clearance w eGFR 25.98 (>60) 03/03/17 05:40 Calcium 7.4 mg/dL (8.5-10.1) L 03/03/17 05:40 Total Bilirubin 0.5 mg/dL (0.2-1.0) 03/03/17 05:40 AST 39 U/L (15-37) H 03/03/17 05:40 ALT 24 U/L (12-78) 03/03/17 05:40 Alkaline Phosphatase 64 U/L (45-117) 03/03/17 05:40 Total Protein 5.1 g/dl (6.4-8.2) L 03/03/17 05:40 Albumin 2.4 g/dl (3.4-5.0) L 03/03/17 05:40 Imaging - Results Cat Scan: Report Reviewed Ultrasound: Report Reviewed Problem List - Problems (1) Dilated cbd, acquired Code(s): K83.8 - OTHER SPECIFIED DISEASES OF BILIARY TRACT (2) Abnormal findings on imaging of biliary tract Code(s): R93.2 - ABNORMAL FINDINGS ON DX IMAGING OF LIVER AND BILIARY TRACT Assessment/Plan Dilated, tapering at pancreatic head CBD. Normal bilirubin, ALP, and transaminases. Asymptomatic. MRCP if possible (surgical clips in LUQ on xr) Lipase
[2017-03-03] MEDS ORDERED: GABAPENTIN 400 MG CAPSULE (FP) PO ONE (14:37)
[2017-03-03] MEDS ORDERED: GABAPENTIN 400 MG, GABAPENTIN 100 MG PO ONE (14:45)
[2017-03-03] MEDS ORDERED: GABAPENTIN 400 MG CAPSULE (FP) ONE (15:29)
[2017-03-03] MEDS ORDERED: GABAPENTIN 100 MG CAPSULE (FP) ONE (15:30)
--- NOTE | 2017-03-03 17:16 | PN ---
Teaching Attending Note Name of Resident: Manan Mckoy ATTENDING PHYSICIAN STATEMENT I saw and evaluated the patient. I reviewed the resident's note and discussed the case with the resident. I agree with the resident's findings and plan as documented. SUBJECTIVE:c/o L leg pain. worse on exertion. states the swelling is improving. denies CP, SOB, fever, chills, N/V/C/D OBJECTIVE: Last Vital Signs Temp Pulse Resp BP Pulse Ox 98.6 F 69 20 146/72 95 03/03/17 14:15 03/03/17 14:15 03/03/17 14:15 03/03/17 14:15 03/03/17 09:00 General NAD Abdomen soft NT/ND neg baxter sign. no rebound or guarding Extremities L thigh is firm and larger than R. large ecchymosis on the back of the leg extending from thigh to posterior knee. area is tender ASSESSMENT AND PLAN: 72yo F with PMH CVA on coumadin, DM, HTN and dyslipidemia presented with LLE pain s/p fall 1. Intramuscular hematoma- no longer controlled with tramadol. will start percocet. states she had much diffiuclty ambulating with PT. re-assurred it should slowly improve 2. Enlarged CBD- confirmed on u/s 1.1cm. GI consulted. since pt is asymptomatic and no transaminitis or signs of cholestasis. will obtain MRCP. if negative can monitor as outpatient. 3. Supratherapeutic INR- states has been steadily on coumadin for a long time. INR slowly decreasing. in setting of decreased hgb will hold coumadin today. and redose tomorrow at lower dose 4. Acute blood loss anemia- likley due to intramuscular hematomas. slowly trending down. repeat CBC. if <7 will txn. check iron studies 5. JOSÉ MIGUEL- likely dehydration. FeNa <1. improved. monitor 6. hypomagnesemia- resolved 7. Mechanical fall- c/o rib pain which now improved. XR negative for acute fx. will have PT assessment 8. DM- A1c 7.3. controlled. cont iss. hold metformin inpatient 9. HTN- controlled. cont atenolol and norvasc 10. DVT ppx- supratherapeutic INR 11. spoke with pt with family bedside. explained possibility of need for ITZEL placement if continues to have significant pain and inability to ambulate. states she will consider. information of possible ITZEL placement told to DENICE
[2017-03-03] MEDS: SODIUM CHLORIDE 1,000 ML IV SCH ×3 (17:18→22:08)
[2017-03-03] MEDS: ACETAMINOPHEN 325 MG TABLET (FP) PO PRN ×2 (18:01→22:50)
[2017-03-03] MEDS: oxyCODONE HCL 5 MG TABLET PO PRN ×2 (18:02→22:49)
[2017-03-03 18:50] LABS: MCH 29.4 pg (25.7-33.7); MCHC 33.5 g/dl (32.0-36.0); MEAN CELL VOLUME 87.7 fl (80-96); MEAN PLT VOLUME 7.7 fl (7.5-11.1); PLATELET COUNT 269 K/MM3 (134-434); RDW 14.8 % (11.6-15.6); WHITE BLOOD COUNT 7.5 K/mm3 (4.0-10.0)
[2017-03-03] MEDS: GABAPENTIN 400 MG CAPSULE (FP) PO SCH (22:07)
[2017-03-04] MEDS: oxyCODONE HCL 5 MG TABLET PO PRN ×3 (05:43→16:39)
[2017-03-04] MEDS: ACETAMINOPHEN 325 MG TABLET (FP) PO PRN ×3 (05:44→16:40)
[2017-03-04] MEDS: GABAPENTIN 400 MG CAPSULE (FP) PO SCH ×3 (05:44→21:52)
[2017-03-04] MEDS: SODIUM CHLORIDE 1,000 ML IV SCH (05:45)
[2017-03-04] MEDS: INSULIN SLIDING SCALE (NOVOLOG) 1 VIAL SQ SCH ×4 (06:36→21:57)
--- NOTE | 2017-03-04 06:42 | PN ---
Physical Exam: SUBJECTIVE: Patient seen and examined. No n/v, fever or chills. Leg pain improved. [place] SOB when walking back from bathroom. Endorses orthopnea. No chest or abdominal pain. OBJECTIVE: Vital Signs Period Temp Pulse Resp BP Sys/Thao Pulse Ox Last 24 Hr 97.6 F-98.6 F 60-74 18-20 141-172/65-97 95-95 GENERAL: aaox3, nad EYES: sclera anicteric, conjunctiva clear ENT: moist mucous membranes LUNGS: bibasilar crackles HEART: rrr, normal S1/S2, no murmur, rub or gallop, elevated JVD ABDOMEN: Soft, ntnd, normoactive bowel sounds LOWER EXTREMITIES: trace bilateral pitting edema, L thigh circumference > R, L thigh soft, + ecchymosis over posterior thigh, mild ttp CBC, BMP 03/04/17 08:10 03/04/17 08:10 INR, PTT INR 1.61 (0.82-1.09) H D 03/04/17 08:10 Microbiology 02/28/17 21:00 Blood - Peripheral Venous Blood Culture - Preliminary NO GROWTH OBTAINED AFTER 72 HOURS, INCUBATION TO CONTINUE FOR 2 DAYS. 02/28/17 21:00 Blood - Peripheral Venous Blood Culture - Preliminary NO GROWTH OBTAINED AFTER 72 HOURS, INCUBATION TO CONTINUE FOR 2 DAYS. 03/02/17 09:35 Urine - Urine Clean Catch Urine Culture - Final Diphtheroid/Corynebacterium (normal skin alexandrea) 02/28/17 12:00 Urine - Urine Clean Catch Urine Culture - Final Contaminated: Please Repeat Imaging: ECHO pending MRCP pending Active Medications Acetaminophen (Tylenol -) 325 mg PO Q4H PRN PRN Reason: PAIN Stop: 03/06/17 17:17 Last Admin: 03/04/17 16:40 Dose: 325 mg Albuterol/Ipratropium (Duoneb -) 1 amp NEB Q6H PRN PRN Reason: SHORTNESS OF BREATH Amlodipine Besylate (Norvasc -) 5 mg PO DAILY [facility] Last Admin: 03/04/17 10:40 Dose: 5 mg Atenolol (Tenormin -) 25 mg PO BID [facility] Last Admin: 03/04/17 10:40 Dose: 25 mg Atorvastatin Calcium (Lipitor -) 10 mg PO HS [facility] Budesonide/Formoterol Fumarate (Symbicort 160/4.5mcg -) 1 puff IH BID [facility] Digoxin (Lanoxin -) 0.0625 mg PO Q36H [facility] Duloxetine HCl (Cymbalta -) 90 mg PO DAILY [facility] Last Admin: 03/04/17 10:39 Dose: 90 mg Enoxaparin Sodium (Lovenox -) 55 mg SQ DAILY [facility] Last Admin: 03/04/17 16:41 Dose: 55 mg Gabapentin (Neurontin -) 800 mg PO TID [facility] Last Admin: 03/04/17 13:18 Dose: 800 mg Insulin Aspart (Novolog Vial Sliding Scale -) 1 vial SQ ACHS [facility] PRN Reason: Protocol Last Admin: 03/04/17 16:41 Dose: 4 units Oxycodone HCl (Roxicodone -) 5 mg PO Q4H PRN PRN Reason: PAIN Last Admin: 03/04/17 16:39 Dose: 5 mg Tramadol HCl (Ultram -) 50 mg PO Q6H PRN PRN Reason: PAIN Last Admin: 03/03/17 10:42 Dose: 50 mg Warfarin Sodium (Coumadin -) 4 mg PO DAILY@1800 [facility] ASSESSMENT/PLAN: 72yo F with PMH of CVA, Afib (on Coumadin), COPD, DM, HTN, and HLD who presented on 02/28 with LLE pain s/p mechanical fall (denies LOC, hitting head, Head CT neg hemorrhage) who was found to have JOSÉ MIGUEL and LLE intramuscular hematoma , which are both improving. Cr is downtrending (1.9 -> 1.6). Collateral obtained from her PCP's office (Dr. Layne) recorded Cr 0.8 in October 2015. PE is notable for reduced L thigh swelling and tenderness over ecchymosis. Her hgb has been stabilizing. Patient this AM now with acute SOB, satting at 90-92% on RA. She has a history of COPD and significant smoking history, which could be contributing to low pSaO2. PE notable bibasilar crackles, +JVD, and trace LE pitting edema suggestive of fluid overload in setting of CHF. Pt going for MRCP today for further evaluation of dilated CBD. #SOB -O2 therapy as needed to maintain pSaO2>90% -Duo nebs ONCE and PRN Q6H -Symbicort 1 puff BID -d/c IVF -give Lasix 40mg PO once -Strict I&Os #Afib -INR subtherapeutic -Start coumadin-lovenox bridge: Warfarin 4mg PO daily + Lovenox 55mg SQ daily -Monitor INR, goal 2-3 #CHF -ECHO pending -Home digoxin dose reduced to 0.0625mg PO Q36H due to reduced Cr (25-75% of home dose q36H if Cr 10-50) #L leg pain A: improving, likely 2/2 evolving intramusclular hematoma -Cont percocet and tramadol prn for pain #Dilated CBD -GI consulted -MRCP today #JOSÉ MIGUEL A: improving, FeNa <1% suggestive of pre-renal likely 2/2 dehydration -Trend BUN, Cr #normocytic anemia A: likely 2/2 acute blood, Hgb stable, Fe studies neg -Monitor H&H #HLD -home atorvastatin 10mg PO HS #hypothyroidism -home synthroid 50mcg PO daily #DM A: A1c 7.3% (03/01/17) -Hold home metformin -BGM and ISS ACHS #HTN -Continue home Atenolol 25mg PO BID and Amlodipine 5mg PO daily #FEN -Hold IVF -lytes wnl -Diabetic/Na controlled diet #PPX -DVT - on coumadin-lovenox -GI - not indicated #Dispo: Continue monitoring on floors FULL code d/w Dr. Verenice De Anda MD PGY-1 Visit type - Emergency Visit Emergency Visit: No - New Patient This patient is new to me today: No - Critical Care Critical Care patient: No
[2017-03-04 08:30] LABS: MCH 29.1 pg (25.7-33.7); MCHC 33.5 g/dl (32.0-36.0); MEAN PLT VOLUME 7.6 fl (7.5-11.1); PLATELET COUNT 268 K/MM3 (134-434); RDW 14.5 % (11.6-15.6); WHITE BLOOD COUNT 8.4 K/mm3 (4.0-10.0)
[2017-03-04 08:45] LABS: INR 1.61 (0.82-1.09); PROTHROMBIN TIME (PATIENT) 18.2 SEC (9.98-11.88)
[2017-03-04 08:57] LABS: ANION GAP 10 (8-16); CALCIUM 7.8 mg/dL (8.5-10.1); CO2 22 mmol/L (21-32); CREATININE 1.6 mg/dL (0.55-1.02); GLUCOSE,RANDOM 112 mg/dL (74-106)
[2017-03-04] MEDS: DULoxetine HCL 30 MG CAPSULE.DR (FP) PO SCH (10:39)
[2017-03-04] MEDS: ATENOLOL 25 MG TABLET (FP) PO SCH ×2 (10:40→21:52)
[2017-03-04] MEDS: amLODIPine BESYLATE 5 MG TABLET (FP) PO SCH (10:40)
[2017-03-04] MEDS ORDERED: FUROSEMIDE 40 MG TABLET (FP) PO ONE (12:15)
[2017-03-04] MEDS ORDERED: ENOXAPARIN NA (PORCINE) 40 MG/0.4 ML DISP.SYRIN SQ SCH (13:15)
--- NOTE | 2017-03-04 13:15 | PN ---
Teaching Attending Note Name of Resident: Masha De Anda ATTENDING PHYSICIAN STATEMENT I saw and evaluated the patient. I reviewed the resident's note and discussed the case with the resident. I agree with the resident's findings and plan as documented. SUBJECTIVE:c/o shortness of breath on exertion. +orthopnea. states her LLE pain is improved. denies CP, fever, chills, cough, N/V/C/D or abdominal pain informs that she is on coumadin due to a fib which was discovered after her CVA. OBJECTIVE: Last Vital Signs Temp Pulse Resp BP Pulse Ox 97.9 F 63 18 150/61 95 03/04/17 08:15 03/04/17 10:30 03/04/17 10:30 03/04/17 10:30 03/03/17 21:00 General NAD HEENT +JVD Lungs B/L basal crackles Abdomen soft NT/ND neg baxter sign. no rebound or guarding Extremities L thigh is soft and larger than R. large ecchymosis on the back of the leg extending from thigh to posterior knee. non tender. 1+ pitting edema ASSESSMENT AND PLAN: 72yo F with PMH CVA, afib on coumadin, DM, HTN and dyslipidemia presented with LLE pain s/p fall 1. Acute SOB- due to volume overload as evident on exam. likely due to aggressive IVF hydration. will check echo to evaluate. no echo here on record. give lasix 40mg IVP. will monitor for improvement. consider CXR if clinically worsens 2. Intramuscular hematoma- improved on percocet. no longer firm and looks to be improving. cont PT and pain control. 2. Enlarged CBD- confirmed on u/s 1.1cm. GI consulted. since pt is asymptomatic and no transaminitis or signs of cholestasis. will obtain MRCP. if negative can monitor as outpatient. 3. Supratherapeutic INR- due to afib. now subtherapeutic. will start full dose lovenox bridge with reduced dose of coumadin at 4mg.monitor INR 4. Acute blood loss anemia- likley due to intramuscular hematomas. stable Hgb. repeat CBC. if <7 will txn. iron studies pending 5. JOSÉ MIGUEL- likely dehydration. FeNa <1. improved. monitor 6. hypomagnesemia- resolved 7. Mechanical fall- c/o rib pain which now improved. XR negative for acute fx. PT assessment 8. DM- A1c 7.3. controlled. cont iss. hold metformin inpatient 9. HTN- controlled. cont atenolol and norvasc 10. DVT ppx- lovenox-coumadin bridge
[2017-03-04] MEDS ORDERED: ALBUTEROL SO4 2.5/IPRATROPIUM 0.5 INH SOL 3 ML VIAL.NEB. NEB ONE (16:01)
[2017-03-04] MEDS ORDERED: DIGOXIN 0.125 MG TABLET (FP) PO SCH (16:15)
[2017-03-04] MEDS: ENOXAPARIN NA (PORCINE) 60 MG/0.6 ML DISP.SYRIN SQ SCH (16:41)
[2017-03-04] MEDS: WARFARIN NA 2 MG TABLET (UD) PO SCH (18:03)
[2017-03-04] MEDS: DIGOXIN 0.125 MG TABLET (FP) PO SCH (18:14)
[2017-03-04] MEDS ORDERED: oxyCODONE HCL 5 MG TABLET PO ONE (20:10)
[2017-03-04] MEDS ORDERED: INSULIN (NOVOLOG) ASPART 100 UNITS/ML 10ML VIAL ONE (21:29)
[2017-03-04] MEDS: BUDESONIDE/FORMETEROL FUMARATE 160/4.5 mcg INHALER IH SCH (21:52)
[2017-03-04] MEDS: ATORVASTATIN CA 10 MG TABLET (FP) PO SCH (21:52)
[2017-03-04] MEDS ORDERED: ATORVASTATIN CA 20 MG TABLET (FP) PO SCH (22:00)
[2017-03-05 06:09] LABS: SERUM IRON 48 ug/dL (27-139); TOTAL IRON BINDING CAPACITY 258 ug/dL (250-450); UIBC 210 ug/dL (118-369)
--- NOTE | 2017-03-05 06:31 | PN ---
Physical Exam: SUBJECTIVE: Patient seen and examined. No n/v, fever or chills. Continues to have L leg pain that is worse when standing or prolonged sitting. SOB improved this morning. No chest pain, abdominal pain, or dizziness. OBJECTIVE: Vital Signs Period Temp Pulse Resp BP Sys/Thao Pulse Ox Last 24 Hr 97.9 F-98.6 F 61-66 18-22 150-176/61-98 92-96 GENERAL: aaox3, nad EYES: sclera anicteric, conjunctiva clear ENT: moist mucous membranes LUNGS: CTAB, no wheezes or rales HEART: rrr, normal S1/S2, no murmur, rub or gallop, elevated JVD ABDOMEN: Soft, ntnd, normoactive bowel sounds LOWER EXTREMITIES: trace bilateral pitting edema, L thigh circumference 49cm (R 46.5cm), + ecchymosis over posterior thigh, warm and tender to touch CBC, BMP 03/05/17 05:56 03/05/17 05:56 INR, PTT INR 1.42 (0.82-1.09) H 03/05/17 05:56 Ca - 7.8 Phos - 3.9 Mg - 1.7 Microbiology 02/28/17 21:00 Blood - Peripheral Venous Blood Culture - Preliminary NO GROWTH OBTAINED AFTER 96 HOURS, INCUBATION TO CONTINUE FOR 1 DAYS. 02/28/17 21:00 Blood - Peripheral Venous Blood Culture - Preliminary NO GROWTH OBTAINED AFTER 96 HOURS, INCUBATION TO CONTINUE FOR 1 DAYS. 03/02/17 09:35 Urine - Urine Clean Catch Urine Culture - Final Diphtheroid/Corynebacterium 02/28/17 12:00 Urine - Urine Clean Catch Urine Culture - Final Contaminated: Please Repeat IMAGING ECHO (03/05/2017): L and R systolic functions normal, basal septal hypertrophy w /o LVOT obstruction. borderline R atrial enlargement, mild to moderate MR/TR/ MRCP (03/05/2017): questionable area of T1 hypointense signal in the region of the pancreatic head, suspicious for malignancy Active Medications Acetaminophen (Tylenol -) 325 mg PO Q4H PRN PRN Reason: PAIN Stop: 03/06/17 17:17 Last Admin: 03/05/17 11:19 Dose: 325 mg Albuterol/Ipratropium (Duoneb -) 1 amp NEB Q6H PRN PRN Reason: SHORTNESS OF BREATH Last Admin: 03/05/17 11:16 Dose: 1 amp Amlodipine Besylate (Norvasc -) 5 mg PO DAILY [facility] Last Admin: 03/05/17 11:08 Dose: 5 mg Atenolol (Tenormin -) 25 mg PO BID [facility] Last Admin: 03/05/17 11:09 Dose: 25 mg Atorvastatin Calcium (Lipitor -) 10 mg PO HS [facility] Last Admin: 03/04/17 21:52 Dose: 10 mg Budesonide/Formoterol Fumarate (Symbicort 160/4.5mcg -) 1 puff IH BID [facility] Last Admin: 03/05/17 11:19 Dose: 1 puff Digoxin (Lanoxin -) 0.0625 mg PO Q36H [facility] Last Admin: 03/04/17 18:14 Dose: 0.0625 mg Duloxetine HCl (Cymbalta -) 90 mg PO DAILY [facility] Last Admin: 03/05/17 11:07 Dose: 90 mg Furosemide (Lasix -) 20 mg PO DAILY [facility] Last Admin: 03/05/17 12:32 Dose: 20 mg Gabapentin (Neurontin -) 800 mg PO TID [facility] Last Admin: 03/05/17 14:59 Dose: 800 mg Insulin Aspart (Novolog Vial Sliding Scale -) 1 vial SQ ACHS [facility] PRN Reason: Protocol Last Admin: 03/05/17 12:32 Dose: 8 units Levothyroxine Sodium (Synthroid -) 50 mcg PO DAILY@0700 [facility] Last Admin: 03/05/17 06:39 Dose: 50 mcg Oxycodone HCl (Roxicodone -) 5 mg PO Q4H PRN PRN Reason: PAIN Last Admin: 03/05/17 11:18 Dose: 5 mg Tramadol HCl (Ultram -) 50 mg PO Q6H PRN PRN Reason: PAIN Last Admin: 03/03/17 10:42 Dose: 50 mg Warfarin Sodium (Coumadin -) 4 mg PO DAILY@1800 [facility] Last Admin: 03/04/17 18:03 Dose: 4 mg ASSESSMENT/PLAN: 72yo F with PMH of CVA, Afib (on Coumadin), COPD, DM, HTN, and HLD who presented on 02/28 with LLE pain s/p mechanical fall (denies LOC, hitting head, Head CT neg hemorrhage) who was found to have JOSÉ MIGUEL and LLE intramuscular hematoma , which are both improving. TTE today, left and right ventricular function normal, mild to moderate MR/TR/. MRCP T1 hypointense signal in the region of the pancreatic head, suspicious for malignancy. #SOB -O2 therapy as needed to maintain pSaO2>90% -Duo nebs PRN Q6H -Symbicort 1 puff BID -Lasix 20mg PO daily -Strict I&Os while on lasix #L intramuscular hematoma -qShift L mid-thigh circumference measurements, site marked -hold lovenox for now -Monitor H&H -Roxicodone prn for pain #Afib -INR subtherapeutic -hold Lovenox due to hematoma -Continue coumadin 4mg PO daily -Monitor INR, goal 2-3 #CHF -ECHO pending -Home digoxin dose reduced to 0.0625mg PO Q36H due to reduced Cr (25-75% of home dose q36H if Cr 10-50) #Dilated CBD -GI consulted, input appreciated -considering EUS with biopsy #JOSÉ MIGUEL A: improving, FeNa <1% suggestive of pre-renal likely 2/2 dehydration -Trend BUN, Cr #normocytic anemia A: likely 2/2 intramuscular hematoma, Fe studies neg -Monitor H&H #HLD -home atorvastatin 10mg PO HS #hypothyroidism -home synthroid 50mcg PO daily #DM A: A1c 7.3% (03/01/17) -Hold home metformin -BGM and ISS ACHS #HTN -Continue home Atenolol 25mg PO BID and Amlodipine 5mg PO daily #FEN -Hold IVF -hypomagnesia, repleted 2g IV -Diabetic/Na controlled diet #PPX -DVT - on coumadin -GI - not indicated #Dispo: Continue monitoring on floors FULL code d/w Dr. Esther De Anda MD PGY-1 Visit type - Emergency Visit Emergency Visit: No - New Patient This patient is new to me today: No - Critical Care Critical Care patient: No
[2017-03-05] MEDS: LEVOTHYROXINE NA 50 MCG TABLET (FP) PO SCH (06:39)
[2017-03-05] MEDS: GABAPENTIN 400 MG CAPSULE (FP) PO SCH ×3 (06:39→21:14)
[2017-03-05] MEDS: ACETAMINOPHEN 325 MG TABLET (FP) PO PRN ×3 (06:39→17:33)
[2017-03-05] MEDS: oxyCODONE HCL 5 MG TABLET PO PRN ×4 (06:40→22:24)
[2017-03-05] MEDS: INSULIN SLIDING SCALE (NOVOLOG) 1 VIAL SQ SCH ×4 (06:42→21:14)
[2017-03-05 07:10] LABS: MCH 29.3 pg (25.7-33.7); MCHC 34.2 g/dl (32.0-36.0); MEAN CELL VOLUME 85.6 fl (80-96); MEAN PLT VOLUME 7.5 fl (7.5-11.1); PLATELET COUNT 313 K/MM3 (134-434); RDW 14.1 % (11.6-15.6); WHITE BLOOD COUNT 8.6 K/mm3 (4.0-10.0)
[2017-03-05 07:41] LABS: ANION GAP 11 (8-16); CALCIUM 7.8 mg/dL (8.5-10.1); CO2 24 mmol/L (21-32); CREATININE 1.7 mg/dL (0.55-1.02); GLUCOSE,RANDOM 131 mg/dL (74-106); MAGNESIUM 1.7 mg/dL (1.8-2.4); PHOSPHOROUS 3.9 mg/dL (2.5-4.9)
[2017-03-05 07:43] LABS: INR 1.42 (0.82-1.09)
--- NOTE | 2017-03-05 09:52 | PN ---
Progress Note, Physician History of Present Illness: No dyspepsia, epigastric pain, nausea, vomiting, jaundice. Tolerating reg. diet. In good spirit - Current Medication List Current Medications: Active Medications Acetaminophen (Tylenol -) 325 mg PO Q4H PRN PRN Reason: PAIN Stop: 03/06/17 17:17 Last Admin: 03/05/17 06:39 Dose: 325 mg Albuterol/Ipratropium (Duoneb -) 1 amp NEB Q6H PRN PRN Reason: SHORTNESS OF BREATH Amlodipine Besylate (Norvasc -) 5 mg PO DAILY [facility] Last Admin: 03/04/17 10:40 Dose: 5 mg Atenolol (Tenormin -) 25 mg PO BID [facility] Last Admin: 03/04/17 21:52 Dose: 25 mg Atorvastatin Calcium (Lipitor -) 10 mg PO HS [facility] Last Admin: 03/04/17 21:52 Dose: 10 mg Budesonide/Formoterol Fumarate (Symbicort 160/4.5mcg -) 1 puff IH BID [facility] Last Admin: 03/04/17 21:52 Dose: 1 puff Digoxin (Lanoxin -) 0.0625 mg PO Q36H [facility] Last Admin: 03/04/17 18:14 Dose: 0.0625 mg Duloxetine HCl (Cymbalta -) 90 mg PO DAILY [facility] Last Admin: 03/04/17 10:39 Dose: 90 mg Enoxaparin Sodium (Lovenox -) 55 mg SQ DAILY [facility] Last Admin: 03/04/17 16:41 Dose: 55 mg Gabapentin (Neurontin -) 800 mg PO TID [facility] Last Admin: 03/05/17 06:39 Dose: 800 mg Insulin Aspart (Novolog Vial Sliding Scale -) 1 vial SQ ACHS [facility] PRN Reason: Protocol Last Admin: 03/05/17 06:42 Dose: Not Given Levothyroxine Sodium (Synthroid -) 50 mcg PO DAILY@0700 [facility] Last Admin: 03/05/17 06:39 Dose: 50 mcg Oxycodone HCl (Roxicodone -) 5 mg PO Q4H PRN PRN Reason: PAIN Last Admin: 03/05/17 06:40 Dose: 5 mg Tramadol HCl (Ultram -) 50 mg PO Q6H PRN PRN Reason: PAIN Last Admin: 03/03/17 10:42 Dose: 50 mg Warfarin Sodium (Coumadin -) 4 mg PO DAILY@1800 [facility] Last Admin: 03/04/17 18:03 Dose: 4 mg - Objective Vital Signs: Vital Signs Temperature 98.6 F 03/05/17 09:23 Pulse Rate 67 03/05/17 09:23 Respiratory Rate 20 03/05/17 09:23 Blood Pressure 157/69 03/05/17 09:23 O2 Sat by Pulse Oximetry (%) 96 03/04/17 22:00 Constitutional: Yes: No Distress, Calm Eyes: Yes: Conjunctiva Clear HENT: Yes: Atraumatic Neck: Yes: Supple Cardiovascular: Yes: Regular Rate and Rhythm Respiratory: Yes: Regular Gastrointestinal: Yes: Normal Bowel Sounds, Soft. No: Distention, Melena, Palpable Mass, Pulsatile Mass, Rectal Bleeding, Tenderness, Vomiting Neurological: Yes: Alert, Oriented Labs: CBC, BMP 03/05/17 05:56 03/05/17 05:56 INR, PTT INR 1.42 (0.82-1.09) H 03/05/17 05:56 CBCD WBC 8.6 K/mm3 (4.0-10.0) 03/05/17 05:56 RBC 2.72 M/mm3 (3.60-5.2) L 03/05/17 05:56 Hgb 8.0 GM/dL (10.7-15.3) L 03/05/17 05:56 Hct 23.3 % (32.4-45.2) L 03/05/17 05:56 MCV 85.6 fl (80-96) 03/05/17 05:56 MCHC 34.2 g/dl (32.0-36.0) 03/05/17 05:56 RDW 14.1 % (11.6-15.6) 03/05/17 05:56 Plt Count 313 K/MM3 (134-434) 03/05/17 05:56 MPV 7.5 fl (7.5-11.1) 03/05/17 05:56 CMP Sodium 143 mmol/L (136-145) 03/05/17 05:56 Potassium 4.1 mmol/L (3.5-5.1) 03/05/17 05:56 Chloride 108 mmol/L (98-107) H 03/05/17 05:56 Carbon Dioxide 24 mmol/L (21-32) 03/05/17 05:56 Anion Gap 11 (8-16) 03/05/17 05:56 BUN 35 mg/dL (7-18) H 03/05/17 05:56 Creatinine 1.7 mg/dL (0.55-1.02) H 03/05/17 05:56 Creat Clearance w eGFR 25.98 (>60) 03/03/17 05:40 Calcium 7.8 mg/dL (8.5-10.1) L 03/05/17 05:56 Total Bilirubin 0.5 mg/dL (0.2-1.0) 03/03/17 05:40 AST 39 U/L (15-37) H 03/03/17 05:40 ALT 24 U/L (12-78) 03/03/17 05:40 Alkaline Phosphatase 64 U/L (45-117) 03/03/17 05:40 Total Protein 5.1 g/dl (6.4-8.2) L 03/03/17 05:40 Albumin 2.4 g/dl (3.4-5.0) L 03/03/17 05:40 Lipase 133 - ....Imaging MRI: Report Reviewed (Dil. CBD, and proximal PD. ? mass pancreatic head) Problem List - Problems (1) Dilated cbd, acquired Code(s): K83.8 - OTHER SPECIFIED DISEASES OF BILIARY TRACT (2) Abnormal findings on imaging of biliary tract Code(s): R93.2 - ABNORMAL FINDINGS ON DX IMAGING OF LIVER AND BILIARY TRACT (3) Pancreatic lesion Code(s): K86.9 - DISEASE OF PANCREAS, UNSPECIFIED Assessment/Plan The patient is asymptomatic, negative history and normal lab results. Discuss with patient/family EUS with FNA to clarify MRCP findings
[2017-03-05] MEDS: DULoxetine HCL 30 MG CAPSULE.DR (FP) PO SCH (11:07)
[2017-03-05] MEDS: ENOXAPARIN NA (PORCINE) 60 MG/0.6 ML DISP.SYRIN SQ SCH (11:08)
[2017-03-05] MEDS: amLODIPine BESYLATE 5 MG TABLET (FP) PO SCH (11:08)
[2017-03-05] MEDS: ATENOLOL 25 MG TABLET (FP) PO SCH ×2 (11:09→21:15)
[2017-03-05] MEDS ORDERED: PT OWN MED DRAWER 7, Y5N ONE ×2 (11:16→17:26)
[2017-03-05] MEDS: ALBUTEROL SO4 2.5/IPRATROPIUM 0.5 INH SOL 3 ML VIAL.NEB. NEB PRN (11:16)
[2017-03-05] MEDS: BUDESONIDE/FORMETEROL FUMARATE 160/4.5 mcg INHALER IH SCH ×2 (11:19→21:14)
[2017-03-05] MEDS ORDERED: INSULIN (NOVOLOG) ASPART 100 UNITS/ML 10ML VIAL ONE ×2 (12:00→21:10)
[2017-03-05] MEDS: FUROSEMIDE 20 MG TABLET (FP) PO SCH (12:32)
--- NOTE | 2017-03-05 15:45 | PN ---
Teaching Attending Note Name of Resident: Masha De Anda ATTENDING PHYSICIAN STATEMENT I saw and evaluated the patient. I reviewed the resident's note and discussed the case with the resident. I agree with the resident's findings and plan as documented. SUBJECTIVE: patient seen and examined, ongoing leg pain with no worsening, reports some scattered ecchymosis but no new pain or limitation of movements. Breathing improved. NO chest pain, palpitations, dyspnea, dizziness noted. Overall feels better. OBJECTIVE: Vital Signs Period Temp Pulse Resp BP Sys/Thao Pulse Ox Last 24 Hr 98.0 F-98.6 F 61-67 18-22 130-158/57-98 96 CVS -S1S2 regular chest -distant breath sounds consistent with COPD, positive air entry, no rales or wheezing appreciated Neck - pos external jugular distensio Abdomen - soft, NT, ND, positive bowel sounds Extremities - Left thigh swelling with surrounding ecchymosis, positive pulses bilaterally. Neuro AAOX3 Active Medications Acetaminophen (Tylenol -) 325 mg PO Q4H PRN PRN Reason: PAIN Stop: 03/06/17 17:17 Last Admin: 03/05/17 11:19 Dose: 325 mg Albuterol/Ipratropium (Duoneb -) 1 amp NEB Q6H PRN PRN Reason: SHORTNESS OF BREATH Last Admin: 03/05/17 11:16 Dose: 1 amp Amlodipine Besylate (Norvasc -) 5 mg PO DAILY [facility] Last Admin: 03/05/17 11:08 Dose: 5 mg Atenolol (Tenormin -) 25 mg PO BID [facility] Last Admin: 03/05/17 11:09 Dose: 25 mg Atorvastatin Calcium (Lipitor -) 10 mg PO HS [facility] Last Admin: 03/04/17 21:52 Dose: 10 mg Budesonide/Formoterol Fumarate (Symbicort 160/4.5mcg -) 1 puff IH BID [facility] Last Admin: 03/05/17 11:19 Dose: 1 puff Digoxin (Lanoxin -) 0.0625 mg PO Q36H [facility] Last Admin: 03/04/17 18:14 Dose: 0.0625 mg Duloxetine HCl (Cymbalta -) 90 mg PO DAILY [facility] Last Admin: 03/05/17 11:07 Dose: 90 mg Furosemide (Lasix -) 20 mg PO DAILY [facility] Last Admin: 03/05/17 12:32 Dose: 20 mg Gabapentin (Neurontin -) 800 mg PO TID [facility] Last Admin: 03/05/17 14:59 Dose: 800 mg Insulin Aspart (Novolog Vial Sliding Scale -) 1 vial SQ ACHS [facility] PRN Reason: Protocol Last Admin: 03/05/17 12:32 Dose: 8 units Levothyroxine Sodium (Synthroid -) 50 mcg PO DAILY@0700 [facility] Last Admin: 03/05/17 06:39 Dose: 50 mcg Oxycodone HCl (Roxicodone -) 5 mg PO Q4H PRN PRN Reason: PAIN Last Admin: 03/05/17 11:18 Dose: 5 mg Tramadol HCl (Ultram -) 50 mg PO Q6H PRN PRN Reason: PAIN Last Admin: 03/03/17 10:42 Dose: 50 mg Warfarin Sodium (Coumadin -) 4 mg PO DAILY@1800 [facility] Last Admin: 03/04/17 18:03 Dose: 4 mg Laboratory Results - last 24 hr 03/03/17 03/04/17 03/04/17 06:15 16:26 21:55 WBC RBC Hgb Hct MCV MCH MCHC RDW Plt Count MPV PT with INR INR PTT (Actin FS) Sodium Potassium Chloride Carbon Dioxide Anion Gap BUN Creatinine POC Glucometer 223 161 Random Glucose Calcium Phosphorus Magnesium Iron 48 TIBC 258 Iron Saturation 19 Digoxin 03/05/17 03/05/17 03/05/17 05:56 05:56 05:56 WBC 8.6 RBC 2.72 L Hgb 8.0 L Hct 23.3 L MCV 85.6 MCH 29.3 MCHC 34.2 RDW 14.1 Plt Count 313 MPV 7.5 PT with INR 16.00 H INR 1.42 H PTT (Actin FS) Sodium 143 Potassium 4.1 Chloride 108 H Carbon Dioxide 24 Anion Gap 11 BUN 35 H Creatinine 1.7 H POC Glucometer Random Glucose 131 H Calcium 7.8 L Phosphorus 3.9 D Magnesium 1.7 L Iron TIBC Iron Saturation Digoxin 03/05/17 03/05/17 03/05/17 05:56 05:56 06:31 WBC RBC Hgb Hct MCV MCH MCHC RDW Plt Count MPV PT with INR INR PTT (Actin FS) 36.6 H Sodium Potassium Chloride Carbon Dioxide Anion Gap BUN Creatinine POC Glucometer 132 Random Glucose Calcium Phosphorus Magnesium Iron TIBC Iron Saturation Digoxin 0.5710 L 03/05/17 11:56 WBC RBC Hgb Hct MCV MCH MCHC RDW Plt Count MPV PT with INR INR PTT (Actin FS) Sodium Potassium Chloride Carbon Dioxide Anion Gap BUN Creatinine POC Glucometer 305 Random Glucose Calcium Phosphorus Magnesium Iron TIBC Iron Saturation Digoxin 2D echo reviewed, mild to moderate MR/TR/ MRCP Noted ASSESSMENT AND PLAN: 1. Acute SOB- improved, >1l Diuresis post lasix. Still with some hypervolumia, with place on gentle lasix 20 mg daily, with close monitoring of renal function. 2D echo reviewed. Continue nebs and montior oxygen sats. Hold off on additional imaging given improvement. 2. Intramuscular hematoma- improved on percocet. no longer firm, reports some scattering of ecchymosis. Will check serial mid thigh circumference, reynaldo site, vascular checks, hold lovenox for now, serial Hb. 2. Enlarged CBD- confirmed on u/s 1.1cm. GI consulted. since pt is asymptomatic and no transaminitis or signs of cholestasis. MRCP reviewed, GI input appreciate. Plan for EUS with biopsy. 3. Supratherapeutic INR/Coumadin induced coagulopathy- Still subtherapeutic INR. continue coumadin with caution. HOld lovenox, given presentation with hematoma, and current need for close monitoring of bleed and hemoglobin. Risks of lovenox outweigh benefits at this stage. 4. Acute blood loss anemia- likley due to intramuscular hematomas. stable Hgb. repeat CBC. if <7 will txn. iron studies pending 5. JOSÉ MIGUEL- likely dehydration. FeNa <1. improved. monitor 6. hypomagnesemia- resolved 7. Mechanical fall- c/o rib pain which now improved. XR negative for acute fx. PT assessment 8. DM- A1c 7.3. controlled. cont iss. hold metformin inpatient 9. HTN- controlled. cont atenolol and norvasc 10. DVT ppx- coumadin as above, hold lovenox today. 11. Dispo - pending improvement in clinical symptoms.
[2017-03-05] MEDS ORDERED: MAGNESIUM SULF 50% (8.12 MEQ/2 ML-1 GM VIAL) IVPB ONE (16:58)
[2017-03-05] MEDS: WARFARIN NA 2 MG TABLET (UD) PO SCH (17:34)
[2017-03-05] MEDS: ATORVASTATIN CA 10 MG TABLET (FP) PO SCH (21:14)
[2017-03-06] MEDS: oxyCODONE HCL 5 MG TABLET PO PRN ×5 (04:52→23:18)
[2017-03-06] MEDS: ACETAMINOPHEN 325 MG TABLET (FP) PO PRN ×4 (04:54→19:10)
[2017-03-06] MEDS: DIGOXIN 0.125 MG TABLET (FP) PO SCH (04:57)
[2017-03-06] MEDS: GABAPENTIN 400 MG CAPSULE (FP) PO SCH ×3 (05:01→22:50)
[2017-03-06] MEDS: LEVOTHYROXINE NA 50 MCG TABLET (FP) PO SCH (06:33)
[2017-03-06] MEDS: INSULIN SLIDING SCALE (NOVOLOG) 1 VIAL SQ SCH ×4 (06:36→22:50)
[2017-03-06 07:32] LABS: MCH 29.9 pg (25.7-33.7); MCHC 34.8 g/dl (32.0-36.0); MEAN PLT VOLUME 7.5 fl (7.5-11.1); PLATELET COUNT 329 K/MM3 (134-434); RDW 14.4 % (11.6-15.6); WHITE BLOOD COUNT 8.9 K/mm3 (4.0-10.0)
[2017-03-06 07:55] LABS: INR 1.59 (0.82-1.09)
[2017-03-06 08:04] LABS: CALCIUM 7.7 mg/dL (8.5-10.1)
[2017-03-06 08:09] LABS: ALBUMIN 2.5 g/dl (3.4-5.0); ALK PHOS 72 U/L (45-117); ANION GAP 11 (8-16); BILIRUBIN,TOTAL 0.5 mg/dL (0.2-1.0); CO2 25 mmol/L (21-32); CREATININE 1.7 mg/dL (0.55-1.02); GLUCOSE,RANDOM 121 mg/dL (74-106); MAGNESIUM 2.2 mg/dL (1.8-2.4); PHOSPHOROUS 3.7 mg/dL (2.5-4.9); SGOT/AST 20 U/L (15-37); SGPT/ALT 17 U/L (12-78); TOT PROT 5.2 g/dl (6.4-8.2)
[2017-03-06] MEDS ORDERED: PT OWN MED DRAWER 7, Y5N ONE (09:23)
[2017-03-06] MEDS: FUROSEMIDE 20 MG TABLET (FP) PO SCH (09:40)
[2017-03-06] MEDS: BUDESONIDE/FORMETEROL FUMARATE 160/4.5 mcg INHALER IH SCH ×2 (09:40→22:50)
[2017-03-06] MEDS: DULoxetine HCL 30 MG CAPSULE.DR (FP) PO SCH (09:41)
[2017-03-06] MEDS: amLODIPine BESYLATE 5 MG TABLET (FP) PO SCH (09:41)
[2017-03-06] MEDS: ATENOLOL 25 MG TABLET (FP) PO SCH ×2 (09:43→23:20)
--- NOTE | 2017-03-06 10:16 | CON.CARD ---
Consult Consult Specialty:: cardiology Reason for Consultation:: hx CVA; valvular heart disease - History of Present Illness History of Present Illness: Ms. Burnette is a 72 yo female with a significant past medical history of several prior strokes on coumadin, DM, HTN, and hypercholesterolemia who presents to the emergency department with a 3 day history of upper left leg pain she says occurs only when she moves. 1 week ago she reports falling from a stool on top of her bed while trying to clear a bug from the ceiling. Denies any dizziness or unsteadiness - says that she lost her balance on top of the stool, causing her fall. She says that she had significant pain at this time and stayed on the ground for about 5 minutes before getting up. Not sure if she hit her head or not but she denies any LOC or double visiton. She has been ambulating after this but says she has been experiencing a lot of back pain since. Following her fall she reports a week of diarrhea in addition to various aches and pains in her arms and legs. Denies any recent travel, other illness, or hospital visits. Allergies: NKDA - History Source History Provided By: Patient, Medical Record - Past Medical History [employer]: Yes: CVA Cardio/Vascular: Yes: HTN, Mitral Insufficiency Gastrointestinal: Yes: Ascites Renal/: Yes: Renal Inusuff Reproductive: Yes: Postmenopausal ...: No Heme/Onc: Yes: Anemia Psych: Yes: Addictions (cigarettes) - Past Surgical History Past Surgical History: Yes: None Additional Surgical History: cervical spine - Alcohol/Substance Use Hx Alcohol Use: No - Smoking History Smoking history: Current every day smoker Aproximately how many cigarettes per day: 20 Home Medications - Allergies Allergies/Adverse Reactions: Allergies Allergy/AdvReac Type Severity Reaction Status Date / Time amoxicillin Allergy Severe Swelling Verified 03/02/17 17:48 - Home Medications Home Medications: Ambulatory Orders Amlodipine Besylate 5 mg PO DAILY 02/28/17 Atenolol [Tenormin -] 25 mg PO DAILY 02/28/17 Duloxetine HCl [Cymbalta] 30 mg PO DAILY 02/28/17 Duloxetine HCl [Cymbalta] 60 mg PO DAILY 02/28/17 Gabapentin 800 mg PO TID 02/28/17 Levocetirizine Dihydrochloride 5 mg PO DAILY 02/28/17 Metformin HCl [Glucophage] 1,000 mg PO BID 02/28/17 Warfarin Sodium [Coumadin] 5 mg PO DAILY 02/28/17 Atorvastatin Ca [Lipitor] 10 mg PO HS 03/04/17 Digoxin [Lanoxin -] 0.125 mg PO DAILY 03/04/17 Etodolac [Lodine] 400 mg PO DAILY 03/04/17 Levothyroxine [Synthroid -] 50 mcg PO DAILY 03/04/17 Metformin HCl [Metformin HCl ER] 1,000 mg PO BID 03/04/17 Oxycodone HCl 10 mg PO DAILY 03/04/17 Oxycodone HCl [Oxycontin] 80 mg PO 03/04/17 Family Disease History - Family Disease History Family History: Denies Review of Systems - Review of Systems Constitutional: reports: No Symptoms Eyes: reports: No Symptoms HENT: reports: No Symptoms Neck: reports: No Symptoms Cardiovascular: reports: No Symptoms Respiratory: reports: No Symptoms Gastrointestinal: reports: No Symptoms Genitourinary: reports: No Symptoms Breasts: reports: No Symptoms Reported Musculoskeletal: reports: Back Pain, Muscle Pain Integumentary: reports: No Symptoms Neurological: reports: Weakness Psychiatric: reports: No Symptoms - Risk Factors Known Risk Factors: Yes: Age, Hypertension, Prior LA /Emb Stroke Vital Signs: Vital Signs Temperature 99 F 03/06/17 09:00 Pulse Rate 82 03/06/17 09:31 Respiratory Rate 18 03/06/17 09:00 Blood Pressure 159/74 03/06/17 09:00 O2 Sat by Pulse Oximetry (%) 96 03/06/17 09:31 Constitutional: Yes: Calm Eyes: Yes: WNL HENT: Yes: WNL Neck: Yes: WNL Respiratory: Yes: WNL Gastrointestinal: Yes: Soft, Ascites Renal/: No: Anuria Cardiovascular: Yes: Regular Rate and Rhythm JVD: No Carotid Bruit: No PMI: Non-Displaced Heart Sounds: Yes: S1, S2 Murmur: Yes: Systolic Murmur, Grade 2 Musculoskeletal: Yes: Back Pain, Muscle Pain (Left LE) Extremities: Yes: Cool Edema: No Peripheral Pulses WNL: Yes Integumentary: Yes: Bruising Neurological: Yes: Alert, Oriented, Weakness Psychiatric: Yes: Alert, Oriented - Other Data Labs, Other Data: CBC, BMP 03/06/17 06:40 03/06/17 06:40 INR, PTT INR 1.59 (0.82-1.09) H 03/06/17 06:40 Echo: Report Reviewed Ejection Fraction %: LVEF > or = 40 % Imaging - Results Chest X-ray: Image Reviewed Cat Scan: Image Reviewed Problem List - Problems (1) Abnormal findings on imaging of biliary tract Assessment/Plan: anasarca; dilated CBD; ? pancreatic disease; ? neoplasm F/u with GI, ?oncologist. Code(s): R93.2 - ABNORMAL FINDINGS ON DX IMAGING OF LIVER AND BILIARY TRACT (2) Pancreatic lesion Assessment/Plan: f/u with GI, ?oncologist. Code(s): K86.9 - DISEASE OF PANCREAS, UNSPECIFIED (3) Acute on chronic diastolic (congestive) heart failure Assessment/Plan: On amlodipiine. F/u BUN/Cr (avoid excessive dehydration); electrolytes; daily weight; Is and Os. Code(s): I50.33 - ACUTE ON CHRONIC DIASTOLIC (CONGESTIVE) HEART FAILURE (4) CVA (cerebral vascular accident) Assessment/Plan: chronic left parietal infarct. ?hx AF (initial EKG: normal sinus rhythm). ECHO: normal LVEF; moderately severe TR and MR; LVH; borderline YOGESH; no ASD or PFO mentioned. Rec: Etiology of CVA infarct uncertain. Continue telemetry. EKG. Consider bubble study to r/o ASD. Restart warfarin when cleared by vascular surgeon. Code(s): I63.9 - CEREBRAL INFARCTION, UNSPECIFIED (5) HTN (hypertension) Assessment/Plan: on amlodipine; f/u BP serially. Code(s): I10 - ESSENTIAL (PRIMARY) HYPERTENSION (6) Cigarette nicotine dependence Assessment/Plan: the imperative need to stop was discussed. Code(s): F17.210 - NICOTINE DEPENDENCE, CIGARETTES, UNCOMPLICATED (7) Hematoma Assessment/Plan: f/u with vascular surgeon. Code(s): T14.8XXA - OTHER INJURY OF UNSPECIFIED BODY REGION, INITIAL ENCOUNTER (8) Renal dysfunction Assessment/Plan: Pt with diastolic CHF. Renal artery aneurysm. Code(s): N28.9 - DISORDER OF KIDNEY AND URETER, UNSPECIFIED (9) Cervical spine disease Code(s): M48.9 - SPONDYLOPATHY, UNSPECIFIED
[2017-03-06] MEDS: ALBUTEROL SO4 2.5/IPRATROPIUM 0.5 INH SOL 3 ML VIAL.NEB. NEB PRN (11:15)
--- NOTE | 2017-03-06 11:27 | PN ---
Physical Exam: 24h Events: yesterday - 2D ECHO: LV/RV systolic fxn nml, mod severe MR/TR, mild-mod , basal septal hypertrophy w/o LVOT AM - c/o SOB, put on 2L NC SUBJECTIVE: Patient seen and examined. No n/v, fever or chills. Continues to have L leg pain that is worse when standing or prolonged sitting. Some SOB this AM. No chest pain, abdominal pain, or dizziness. OBJECTIVE: Vital Signs Period Temp Pulse Resp BP Sys/Thao Pulse Ox Last 24 Hr 98.2 F-99 F 63-82 18-22 130-159/58-81 91-96 GENERAL: aaox3, nad EYES: sclera anicteric, conjunctiva clear ENT: moist mucous membranes LUNGS: mild bibasilar crackles HEART: rrr, normal S1/S2, no murmur, rub or gallop, elevated JVD ABDOMEN: Soft, ntnd, normoactive bowel sounds LOWER EXTREMITIES: trace bilateral pitting edema, L thigh circumference 51cm, + ecchymosis over posterior thigh and calf, no erythema or tenderness CBC, BMP 03/06/17 06:40 03/06/17 06:40 INR, PTT INR 1.59 (0.82-1.09) H 03/06/17 06:40 Ca- 7.7 Phos - 3.7 Mg - 2.2 Microbiology 02/28/17 21:00 Blood - Peripheral Venous Blood Culture - Final NO GROWTH AFTER 5 DAYS INCUBATION 02/28/17 21:00 Blood - Peripheral Venous Blood Culture - Final NO GROWTH AFTER 5 DAYS INCUBATION 03/02/17 09:35 Urine - Urine Clean Catch Urine Culture - Final Diphtheroid/Corynebacterium 02/28/17 12:00 Urine - Urine Clean Catch Urine Culture - Final Contaminated: Please Repeat ASSESSMENT/PLAN: 72yo F with PMH of CVA, Afib (on Coumadin), COPD, DM, HTN, and HLD who presented on 02/28 with LLE pain s/p mechanical fall (denies LOC, hitting head, Head CT neg hemorrhage) now with LLE intramuscular hematoma and SOB. In past 24H , physical exam is notable for reduced L thigh tenderness and firmness, borders marked yesterday more diffuse and tracking down calf, circumference at marked site 51 cm (49cm yesterday). Differential for SOB includes COPD vs CHF exacerbation. #SOB -CT chest w/o contrast pending -O2 therapy as needed to maintain pSaO2>90% -Incentive spirometer -Duo nebs PRN Q6H -Symbicort 1 puff BID -Lasix 20mg PO daily -Strict I&Os while on lasix #L intramuscular hematoma -Pelvis/LE CT w/o contrast pending -qShift L mid-thigh circumference measurements, site marked -hold Coumadin -Monitor H&H -Roxicodone prn for pain #CHF -Cardiology consulted, input appreciated -Home digoxin dose reduced to 0.0625mg PO Q36H due to reduced Cr (25-75% of home dose q36H if Cr 10-50) #Afib -INR subtherapeutic -hold Coumadin today -Monitor INR #HTN -Continue home Atenolol 25mg PO BID and Amlodipine 5mg PO daily #JOSÉ MIGUEL A: improving, FeNa <1% suggestive of pre-renal likely 2/2 dehydration -Trend BUN, Cr #Dilated CBD -GI consulted, input appreciated -considering EUS with biopsy #normocytic anemia A: likely 2/2 intramuscular hematoma, Fe studies neg -Monitor H&H #HLD -home atorvastatin 10mg PO HS #hypothyroidism -home synthroid 50mcg PO daily #DM A: A1c 7.3% (03/01/17) -Hold home metformin -BGM and ISS ACHS #FEN -Hold IVF -lytes wnl -Diabetic/Na controlled diet #PPX -DVT - on coumadin -GI - not indicated #Dispo: Continue monitoring on floors FULL code d/w Dr. Esther De Anda MD PGY-1 Visit type - Emergency Visit Emergency Visit: No - New Patient This patient is new to me today: No - Critical Care Critical Care patient: No
--- NOTE | 2017-03-06 13:00 | PN ---
Teaching Attending Note Name of Resident: Masha De Anda ATTENDING PHYSICIAN STATEMENT I saw and evaluated the patient. I reviewed the resident's note and discussed the case with the resident. I agree with the resident's findings and plan as documented. SUBJECTIVE: Patient seen and examined. left thigh pain improved, redness seems to trickle down thigh but no pain or new symptoms, Breathing better than before, still dyspneic with exertion, no left sided chest pain from fall that she had reported on admission. No new complaints. OBJECTIVE: Vital Signs Period Temp Pulse Resp BP Sys/Thao Pulse Ox Last 24 Hr 98.2 F-99 F 63-82 18-22 130-159/58-81 91-96 Intake & Output 03/03/17 03/04/17 03/05/17 03/06/17 23:59 23:59 23:59 23:59 Intake Total 1550 2300 2035 520 Output Total 200 1275 300 Balance 1550 2100 760 220 Weight 117 lb 4.8 oz General - sitting in bed in no acute distress, able to speak in full sentences, no respiratory distress or use of acessory muscles CVS -S1S2 regular Chest bibasilar fine rales Abdomen - soft, NT, ND, positive bowel sounds extr - left thigh non tender, firm/warm medial aspect but improved from prior, ecchymosis over lower thigh/calf area, positive pulses bilaterally Current Medications Generic Name Dose Route Start Last Admin Trade Name Freq PRN Reason Stop Dose Admin Acetaminophen 325 mg 03/03/17 17:18 03/06/17 09:41 Tylenol - PO 03/06/17 17:17 325 mg Q4H PRN Administration PAIN Albuterol/Ipratropium 1 amp 03/04/17 16:01 03/06/17 11:15 Duoneb - NEB 1 amp Q6H PRN Administration SHORTNESS OF BREATH Amlodipine Besylate 5 mg 02/28/17 19:30 03/06/17 09:41 Norvasc - PO 5 mg DAILY JOSELINE Administration Atenolol 25 mg 03/02/17 22:00 03/06/17 09:43 Tenormin - PO 25 mg BID JOSELINE Administration Atorvastatin Calcium 10 mg 03/04/17 22:00 03/05/17 21:14 Lipitor - PO 10 mg HS JOSELINE Administration Budesonide/Formoterol Fumarate 1 puff 03/04/17 22:00 03/06/17 09:40 Symbicort 160/4.5mcg - IH 1 puff BID JOSELINE Administration Digoxin 0.0625 mg 03/04/17 17:30 03/06/17 04:57 Lanoxin - PO 0.0625 mg Q36H JOSELINE Administration Duloxetine HCl 90 mg 03/01/17 10:00 03/06/17 09:41 Cymbalta - PO 90 mg DAILY JOSELINE Administration Furosemide 20 mg 03/05/17 12:15 03/06/17 09:40 Lasix - PO 20 mg DAILY JOSELINE Administration Gabapentin 800 mg 03/03/17 22:00 03/06/17 05:01 Neurontin - PO 800 mg TID JOSELINE Administration Insulin Aspart 1 vial 02/28/17 22:00 03/06/17 11:50 Novolog Vial Sliding Scale - SQ 4 units ACHS JOSELINE Administration Protocol Levothyroxine Sodium 50 mcg 03/05/17 07:00 03/06/17 06:33 Synthroid - PO 50 mcg DAILY@0700 JOSELINE Administration Oxycodone HCl 5 mg 03/03/17 17:18 03/06/17 09:41 Roxicodone - PO 5 mg Q4H PRN Administration PAIN Laboratory Results - last 24 hr 03/05/17 03/05/17 03/06/17 17:42 21:05 06:35 WBC RBC Hgb Hct MCV MCH MCHC RDW Plt Count MPV PT with INR INR Sodium Potassium Chloride Carbon Dioxide Anion Gap BUN Creatinine Creat Clearance w eGFR POC Glucometer 149 266 136 Random Glucose Calcium Phosphorus Magnesium Total Bilirubin AST ALT Alkaline Phosphatase Total Protein Albumin 03/06/17 03/06/17 03/06/17 06:40 06:40 06:40 WBC 8.9 RBC 2.56 L Hgb 7.7 L Hct 22.0 L MCV 86.0 MCH 29.9 MCHC 34.8 RDW 14.4 Plt Count 329 MPV 7.5 PT with INR 18.00 H INR 1.59 H Sodium 143 Potassium 3.9 Chloride 107 Carbon Dioxide 25 Anion Gap 11 BUN 35 H Creatinine 1.7 H Creat Clearance w eGFR 29.54 POC Glucometer Random Glucose 121 H Calcium 7.7 L Phosphorus 3.7 Magnesium 2.2 D Total Bilirubin 0.5 AST 20 D ALT 17 D Alkaline Phosphatase 72 Total Protein 5.2 L Albumin 2.5 L 10/26/17 11:15 WBC RBC Hgb Hct MCV MCH MCHC RDW Plt Count MPV PT with INR INR Sodium Potassium Chloride Carbon Dioxide Anion Gap BUN Creatinine Creat Clearance w eGFR POC Glucometer 250 Random Glucose Calcium Phosphorus Magnesium Total Bilirubin AST ALT Alkaline Phosphatase Total Protein Albumin 2D echo reviewed ASSESSMENT AND PLAN: -Dyspnea, suspect CHF from mod-severe MR/fluid resuscitation, +/- COPD, less likely PE based on current exam -Left thigh intramuscular hematoma, increase mid thigh circumference, however -Acute blood loss anemia, Hb stable. -Coumadin induced coagulopathy -JOSÉ MIGUEL on CKD stage III, plateaued -H/o CVA -HTN -NIDDM, metformin on hold -HLD -Dilated CBD Plan: Ecchymosis seems to be gravitating to dependent areas. Low suspicion for acute ongoing bleed given improved symptoms, stable h/h and no concerns for vascular compromise. However, given mild reported increase in thigh circumference (? measurement variability, change in ecchymosis), will repeat CT pelvis/LE to compare hematoma. HOld coumadin till findings available. CT chest to assess lungs/fluid. Continue lasix 20 mg Daily, additional pending imaging and cardiology input. Strict I/Os and daily weights. Incentive spirometer, nebs prn. Low suspicion for PE, will monitor clinically. Cardiology consult. daily INR, H/h monitoring. Renal function stable. ISS, diabetic diet, metformin on hold. Discussed MRCP findings and GI recs including EUS with fine needle aspiration with patient, explained need for outpatient follow up for the same. Patient understands and agreable to the same. Encourage ambulation, PT eval and dispo planning. Anticipate d/cy 2-3 days if breathing improved, no new concerns, with stable hematoma and H/h. PLan discussed with patient in detail, all questions answered.
--- NOTE | 2017-03-06 16:59 | CONSULT ---
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 - Alcohol/Substance Use Hx Alcohol Use: No - Smoking History Smoking history: Current every day smoker Aproximately how many cigarettes per day: 20 Home Medications - Allergies Allergies/Adverse Reactions: Allergies Allergy/AdvReac Type Severity Reaction Status Date / Time amoxicillin Allergy Severe Swelling Verified 03/02/17 17:48 - Home Medications Home Medications: Ambulatory Orders Amlodipine Besylate 5 mg PO DAILY 02/28/17 Atenolol [Tenormin -] 25 mg PO DAILY 02/28/17 Duloxetine HCl [Cymbalta] 30 mg PO DAILY 02/28/17 Duloxetine HCl [Cymbalta] 60 mg PO DAILY 02/28/17 Gabapentin 800 mg PO TID 02/28/17 Levocetirizine Dihydrochloride 5 mg PO DAILY 02/28/17 Metformin HCl [Glucophage] 1,000 mg PO BID 02/28/17 Warfarin Sodium [Coumadin] 5 mg PO DAILY 02/28/17 Atorvastatin Ca [Lipitor] 10 mg PO HS 03/04/17 Digoxin [Lanoxin -] 0.125 mg PO DAILY 03/04/17 Etodolac [Lodine] 400 mg PO DAILY 03/04/17 Levothyroxine [Synthroid -] 50 mcg PO DAILY 03/04/17 Metformin HCl [Metformin HCl ER] 1,000 mg PO BID 03/04/17 Oxycodone HCl 10 mg PO DAILY 03/04/17 Oxycodone HCl [Oxycontin] 80 mg PO 03/04/17 Physical Exam Vital Signs: Vital Signs Temperature 97.8 F 03/06/17 14:19 Pulse Rate 70 03/06/17 14:19 Respiratory Rate 22 03/06/17 14:19 Blood Pressure 152/73 03/06/17 14:19 O2 Sat by Pulse Oximetry (%) 96 03/06/17 09:31 Labs: CBC, BMP 03/06/17 06:40 03/06/17 06:40 Assessment/Plan Vascular surgery Ms. Burnette is a 72 yo female with a significant past medical history of several prior strokes on coumadin, DM, HTN, and hypercholesterolemia who presents to the emergency department with a 3 day history of upper left leg pain she says occurs only when she moves. 1 week ago she reports falling from a stool on top of her bed while trying to clear a bug from the ceiling. Denies any dizziness or unsteadyness - says that she lost her balance on top of the stool, causing her fall. She says that she had significant pain at this time and stayed on the ground for about 5 minutes before getting up. Not sure if she hit her head or not but she denies any LOC or double visiton. She has been ambulating after this but says she has been experiencing a lot of back pain since. Following her fall she reports a week of diarrhea in addition to various aches and pains in her arms and legs. Denies any recent travel, other illness, or hospital visits. Allergies: NKDA Past History - Past Medical History Allergies/Adverse Reactions: Allergies Allergy/AdvReac Type Severity Reaction Status Date / Time No Known Allergies Allergy Verified 02/28/17 11:44 PE Head - NC/AT Lung - CTA Heart - RRR abd - soft,nt,nd ext - left leg hematoma posterior leg. soft, no tenderness. Hematoma is trickling down leg which is why we see the ecchymosis in the thigh. Palpable pulses. Lower ext CT - shows intramuscular hematoma. A/P Left post thigh hematoma. 1. well contained on CT. Also hematoma is now almost two weeks old and should be loculated. 2. Recc one unit of PRBC , and then start AC and trend H/H. Pt is walking with some discomfort. Hematoma will take atleast one month to go away. Warm compresses to area. Silvio Mckeon DO
[2017-03-06] MEDS ORDERED: FUROSEMIDE 40 MG/4 ML INJECTABLE VIAL IVPUSH ONE (17:33)
[2017-03-06 17:50] LABS: MCH 29.6 pg (25.7-33.7); MCHC 34.2 g/dl (32.0-36.0); MEAN CELL VOLUME 86.6 fl (80-96); MEAN PLT VOLUME 7.8 fl (7.5-11.1); PLATELET COUNT 373 K/MM3 (134-434); RDW 14.7 % (11.6-15.6); WHITE BLOOD COUNT 8.6 K/mm3 (4.0-10.0)
[2017-03-06] MEDS: ATORVASTATIN CA 10 MG TABLET (FP) PO SCH (22:50)
[2017-03-06] MEDS ORDERED: amLODIPine BESYLATE 5 MG TABLET (FP) PO ONE (23:57)
[2017-03-07] MEDS ORDERED: ALBUTEROL SO4 2.5/IPRATROPIUM 0.5 INH SOL 3 ML VIAL.NEB. NEB PRN (01:31)
[2017-03-07] MEDS ORDERED: hydrALAZINE HCL 20 MG/ML VIAL IVPUSH ONE (02:42)
[2017-03-07] MEDS ORDERED: ACETAMINOPHEN 325 MG TABLET (FP) PO ONE ×2 (02:43→23:59)
[2017-03-07] MEDS: oxyCODONE HCL 5 MG TABLET PO PRN ×4 (03:38→20:39)
[2017-03-07 04:00] LABS: MCH 29.7 pg (25.7-33.7); MCHC 34.3 g/dl (32.0-36.0); MEAN CELL VOLUME 86.4 fl (80-96); MEAN PLT VOLUME 7.6 fl (7.5-11.1); PLATELET COUNT 364 K/MM3 (134-434); RDW 14.1 % (11.6-15.6); WHITE BLOOD COUNT 9.1 K/mm3 (4.0-10.0)
[2017-03-07] MEDS: INSULIN SLIDING SCALE (NOVOLOG) 1 VIAL SQ SCH ×4 (06:10→21:48)
[2017-03-07] MEDS: GABAPENTIN 400 MG CAPSULE (FP) PO SCH ×3 (06:11→21:46)
[2017-03-07] MEDS: LEVOTHYROXINE NA 50 MCG TABLET (FP) PO SCH (06:11)
[2017-03-07] MEDS ORDERED: oxyCODONE HCL 5 MG TABLET PO ONE (06:42)
[2017-03-07] MEDS ORDERED: POLYETHYLENE GLYCOL 3350 119 GM BTL PO ONE (06:43)
[2017-03-07 07:33] LABS: MCH 29.9 pg (25.7-33.7); MCHC 34.7 g/dl (32.0-36.0); MEAN CELL VOLUME 86.2 fl (80-96); MEAN PLT VOLUME 7.8 fl (7.5-11.1); PLATELET COUNT 381 K/MM3 (134-434); RDW 14.5 % (11.6-15.6); WHITE BLOOD COUNT 9.5 K/mm3 (4.0-10.0)
--- NOTE | 2017-03-07 07:53 | PN ---
Physical Exam: 24H Events: yesterday - LE CT: acute and subacute intramuscular hematoma; received 1U PRBCs ON: hypertensive to 178/83, given 10mg Hydralazine IVP and Norvasc 5mg PO; HAYES resolved with Tylenol SUBJECTIVE: Patient seen and examined. No n/v, fever or chills. L thigh pain improved. Feel breathing has improved. No chest pain, abdominal pain, or dizziness. No dysuria. Last BM 2days ago. OBJECTIVE: Vital Signs Period Temp Pulse Resp BP Sys/Thao Pulse Ox Last 24 Hr 97.8 F-99 F 61-82 18-22 119-178/58-83 91-96 GENERAL: aaox3, nad EYES: sclera anicteric, conjunctiva clear ENT: moist mucous membranes LUNGS: fine bibasilar crackles HEART: rrr, normal S1/S2, no murmur, rub or gallop, elevated JVD ABDOMEN: Soft, ntnd, normoactive bowel sounds LOWER EXTREMITIES: 2+ pulses, wwp, no edema, L leg softer, no calor or tenderness to touch. Ecchymosis more diffuse at borders. CBC, BMP 03/07/17 13:25 03/07/17 05:35 INR, PTT INR 1.62 (0.82-1.09) H 03/07/17 05:35 Active Medications Albuterol/Ipratropium (Duoneb -) 1 amp NEB Q6H PRN PRN Reason: SHORTNESS OF BREATH Amlodipine Besylate (Norvasc -) 5 mg PO DAILY [facility] Last Admin: 03/07/17 09:56 Dose: 5 mg Atenolol (Tenormin -) 25 mg PO BID [facility] Atorvastatin Calcium (Lipitor -) 10 mg PO HS [facility] Budesonide/Formoterol Fumarate (Symbicort 160/4.5mcg -) 1 puff IH BID [facility] Last Admin: 03/07/17 09:56 Dose: 1 puff Digoxin (Lanoxin -) 0.0625 mg PO Q36H [facility] Last Admin: 03/07/17 16:36 Dose: 0.0625 mg Duloxetine HCl (Cymbalta -) 90 mg PO DAILY [facility] Last Admin: 03/07/17 09:55 Dose: 90 mg Gabapentin (Neurontin -) 800 mg PO TID [facility] Last Admin: 03/07/17 13:01 Dose: 800 mg Insulin Aspart (Novolog Vial Sliding Scale -) 1 vial SQ ACHS [facility] PRN Reason: Protocol Last Admin: 03/07/17 16:37 Dose: 6 units Levothyroxine Sodium (Synthroid -) 50 mcg PO DAILY@0700 [facility] Last Admin: 03/07/17 06:11 Dose: 50 mcg Oxycodone HCl (Roxicodone -) 5 mg PO Q4H PRN PRN Reason: PAIN Last Admin: 03/07/17 16:37 Dose: 5 mg Warfarin Sodium (Coumadin -) 5 mg PO DAILY@1800 [facility] ASSESSMENT/PLAN: 72yo F with PMH of CVA, Afib (on Coumadin), COPD, DM, HTN, and HLD who presented on 02/28 with LLE pain s/p mechanical fall (denies LOC, hitting head, Head CT neg hemorrhage) found to have LLE intramuscular hematoma and SOB, both of which are improving. Dyspnea etiology likely multifactorial from suspected CHF (mod-severe TR/MR), anemia, COPD. Low suspicion for PE due to clinical improvement s/p 1U PRBCs, diuresis, and on Coumadin. Pre and post ambulatory pSaO2 testing improved compared to 03/06 (96% pre, 94% RA post). Intramuscular hematoma improving, and H&H stable after transfusion. Mild increase in BUN/Cr likely due to diuresis yesterday. #SOB -O2 therapy as needed to maintain pSaO2>90% -Incentive spirometer -Duo nebs PRN Q6H -Symbicort 1 puff BID -Hold Lasix 20mg PO -Strict I&Os #L intramuscular hematoma -Restart Coumadin as H&H stable s/p transfusion -Monitor H&H -Roxicodone prn for pain #CHF -Cardiology consulted, will have her follo-up as OP -Home digoxin dose reduced to 0.0625mg PO Q36H due to reduced Cr (25-75% of home dose q36H if Cr 10-50) #Afib -INR subtherapeutic -Monitor INR #HTN -Continue home Atenolol 25mg PO BID and Amlodipine 5mg PO daily #JOSÉ MIGUEL -Hold lasix -Trend BUN, Cr #Dilated CBD -GI consult noted -d/w pt need for follow-up with OP GI #normocytic anemia -Monitor H&H #HLD -home atorvastatin 10mg PO HS #hypothyroidism -home synthroid 50mcg PO daily #DM A: A1c 7.3% (03/01/17) -Hold home metformin -BGM and ISS ACHS #FEN -Hold IVF -lytes wnl -Diabetic/Na controlled diet #PPX -DVT - on coumadin -GI - not indicated #Dispo: anticipate dispo home within 24H FULL code d/w Dr. Esther De Anda MD PGY-1 Visit type - Emergency Visit Emergency Visit: No - New Patient This patient is new to me today: No - Critical Care Critical Care patient: No
[2017-03-07 07:55] LABS: INR 1.62 (0.82-1.09); PROTHROMBIN TIME (PATIENT) 18.3 SEC (9.98-11.88)
[2017-03-07 08:01] LABS: ANION GAP 11 (8-16); CALCIUM 7.9 mg/dL (8.5-10.1); CO2 27 mmol/L (21-32); GLUCOSE,RANDOM 139 mg/dL (74-106)
[2017-03-07] MEDS ORDERED: PT OWN MED DRAWER 7, Y5N ONE ×2 (09:35→21:33)
--- NOTE | 2017-03-07 09:53 | PN ---
Progress Note (short form) - Note Progress Note: Findings on recent imaging were discussed. Unclear they are related to pancreaticojejunostomy done in 80s at [facility], or it is a new process. Normal hepatic profile, LAP, bilirubin. No weight loss, pain, dyspepsia. 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 Problem List - Problems (1) Dilated cbd, acquired Code(s): K83.8 - OTHER SPECIFIED DISEASES OF BILIARY TRACT (2) Abnormal findings on imaging of biliary tract Code(s): R93.2 - ABNORMAL FINDINGS ON DX IMAGING OF LIVER AND BILIARY TRACT (3) Pancreatic lesion Code(s): K86.9 - DISEASE OF PANCREAS, UNSPECIFIED
[2017-03-07] MEDS: DULoxetine HCL 30 MG CAPSULE.DR (FP) PO SCH (09:55)
[2017-03-07] MEDS: amLODIPine BESYLATE 5 MG TABLET (FP) PO SCH (09:56)
[2017-03-07] MEDS: BUDESONIDE/FORMETEROL FUMARATE 160/4.5 mcg INHALER IH SCH ×2 (09:56→21:46)
[2017-03-07] MEDS ORDERED: FUROSEMIDE 20 MG TABLET (FP) PO SCH (10:00)
[2017-03-07] MEDS ORDERED: ATENOLOL 25 MG TABLET (FP) PO SCH (10:00)
[2017-03-07 10:39] LABS: CREATININE 1.9 mg/dL (0.55-1.02)
[2017-03-07] MEDS ORDERED: INSULIN (NOVOLOG) ASPART 100 UNITS/ML 10ML VIAL ONE ×2 (11:07→21:34)
--- NOTE | 2017-03-07 13:09 | PN ---
Teaching Attending Note Name of Resident: Masha De Anda ATTENDING PHYSICIAN STATEMENT I saw and evaluated the patient. I reviewed the resident's note and discussed the case with the resident. I agree with the resident's findings and plan as documented. SUBJECTIVE: Patient seen and examined, breathing much improved, no longer dyspneic on exertion, left thigh feels better, urinating well, no new complaints. OBJECTIVE: Vital Signs Period Temp Pulse Resp BP Sys/Thao Pulse Ox Last 24 Hr 97.8 F-98.2 F 61-71 20-22 119-178/58-83 93-96 Intake & Output 03/04/17 03/05/17 03/06/17 03/07/17 23:59 23:59 23:59 23:59 Intake Total 2300 2035 1260 800 Output Total 200 1275 300 Balance 2100 760 960 800 General sitting in bed in no acute distress, no dyspnea today ABdomen soft, non tender Extre - Left thigh ecchymosis softer and less warm, trickling ecchymosis in dependent areas with clearing, positive pulses Lungs few fine bibasilar rales, good air entry Current Medications Albuterol/Ipratropium (Duoneb -) 1 amp NEB Q6H PRN PRN Reason: SHORTNESS OF BREATH Amlodipine Besylate (Norvasc -) 5 mg PO DAILY [facility] Last Admin: 03/07/17 09:56 Dose: 5 mg Atenolol (Tenormin -) 25 mg PO BID [facility] Atorvastatin Calcium (Lipitor -) 10 mg PO HS [facility] Budesonide/Formoterol Fumarate (Symbicort 160/4.5mcg -) 1 puff IH BID [facility] Last Admin: 03/07/17 09:56 Dose: 1 puff Digoxin (Lanoxin -) 0.0625 mg PO Q36H [facility] Duloxetine HCl (Cymbalta -) 90 mg PO DAILY [facility] Last Admin: 03/07/17 09:55 Dose: 90 mg Gabapentin (Neurontin -) 800 mg PO TID [facility] Last Admin: 03/07/17 13:01 Dose: 800 mg Insulin Aspart (Novolog Vial Sliding Scale -) 1 vial SQ ACHS [facility] PRN Reason: Protocol Last Admin: 03/07/17 11:25 Dose: 2 units Levothyroxine Sodium (Synthroid -) 50 mcg PO DAILY@0700 [facility] Last Admin: 03/07/17 06:11 Dose: 50 mcg Oxycodone HCl (Roxicodone -) 5 mg PO Q4H PRN PRN Reason: PAIN Last Admin: 03/07/17 11:29 Dose: 5 mg Laboratory Results - last 24 hr 03/06/17 03/06/17 03/06/17 17:00 17:34 17:38 WBC 8.6 RBC 2.73 L Hgb 8.1 L Hct 23.6 L MCV 86.6 MCH 29.6 MCHC 34.2 RDW 14.7 Plt Count 373 MPV 7.8 PT with INR INR Sodium Potassium Chloride Carbon Dioxide Anion Gap BUN Creatinine POC Glucometer 217 Random Glucose Calcium Blood Type O POSITIVE Antibody Screen Negative Crossmatch See Detail 03/06/17 03/07/17 03/07/17 23:25 03:45 05:35 WBC 9.1 9.5 RBC 3.22 L 3.12 L Hgb 9.5 L D 9.3 L Hct 27.8 L D 26.9 L MCV 86.4 86.2 MCH 29.7 29.9 MCHC 34.3 34.7 RDW 14.1 14.5 Plt Count 364 381 MPV 7.6 7.8 PT with INR INR Sodium Potassium Chloride Carbon Dioxide Anion Gap BUN Creatinine POC Glucometer 124 Random Glucose Calcium Blood Type Antibody Screen Crossmatch 03/07/17 03/07/17 03/07/17 05:35 05:35 06:09 WBC RBC Hgb Hct MCV MCH MCHC RDW Plt Count MPV PT with INR 18.30 H INR 1.62 H Sodium 141 Potassium 3.6 Chloride 103 Carbon Dioxide 27 Anion Gap 11 BUN 42 H Creatinine 1.9 H POC Glucometer 153 Random Glucose 139 H Calcium 7.9 L Blood Type Antibody Screen Crossmatch 03/07/17 11:22 WBC RBC Hgb Hct MCV MCH MCHC RDW Plt Count MPV PT with INR INR Sodium Potassium Chloride Carbon Dioxide Anion Gap BUN Creatinine POC Glucometer 178 Random Glucose Calcium Blood Type Antibody Screen Crossmatch 2D echo reviewed CT chest/LE reviewed ASSESSMENT AND PLAN: ASSESSMENT AND PLAN: -Dyspnea, suspect CHF from mod-severe MR/fluid resuscitation, anemia+/- COPD, less likely PE based on current exam -Left thigh intramuscular hematoma, -Acute blood loss anemia, s/p 1 unit PRBC, Hb stable. -Coumadin induced coagulopathy -JOSÉ MIGUEL on CKD stage III, plateaued -H/o CVA -HTN -NIDDM, metformin on hold -HLD -Dilated CBD Plan: Vascular surgery input noted, Hematoma resolving, h/h stable post transfusion, symptoms improved. Oxygenation improved, check ambulatory sats. Hold lasix given rising creatinine. Incentive spirometer, nebs prn. Hold off on cardiology consult as improved daily INR, H/h monitoring. Resume coumadin today if h/h stable on serial reads ISS, diabetic diet, metformin on hold. Discussed MRCP findings and GI recs including EUS with fine needle aspiration with patient, explained need for outpatient follow up for the same. Patient understands and agreable to the same. Encourage ambulation, PT eval and dispo planning. Anticipate d/c in 24 hours if oxygenating well, renal function and hematoma stable. PLan discussed with patient in detail, all questions answered.
[2017-03-07 13:41] LABS: MCH 29.9 pg (25.7-33.7); MCHC 34.9 g/dl (32.0-36.0); MEAN CELL VOLUME 85.7 fl (80-96); MEAN PLT VOLUME 7.3 fl (7.5-11.1); PLATELET COUNT 410 K/MM3 (134-434); RDW 14.7 % (11.6-15.6); WHITE BLOOD COUNT 8.2 K/mm3 (4.0-10.0)
[2017-03-07] MEDS: WARFARIN NA 5 MG TABLET (UD) PO SCH (17:15)
[2017-03-07] MEDS ORDERED: DIGOXIN 0.125 MG TABLET (FP) PO SCH (17:30)
[2017-03-07 21:27] LABS: THYROID STIMULATING HORMONE 4.03 uIU/ml (0.358-3.74)
[2017-03-07] MEDS: ATENOLOL 25 MG TABLET (FP) PO SCH (21:46)
[2017-03-07] MEDS ORDERED: ATORVASTATIN CA 10 MG TABLET (FP) PO SCH (22:00)
--- NOTE | 2017-03-08 05:18 | PN ---
Progress Note, Physician Chief Complaint: Pt A&Ox3; no complaints. History of Present Illness: Ms. Burnette is a 72 yo female with a significant past medical history of several prior strokes on coumadin, DM, HTN, and hypercholesterolemia who presents to the emergency department with a 3 day history of upper left leg pain she says occurs only when she moves. 1 week ago she reports falling from a stool on top of her bed while trying to clear a bug from the ceiling. Denies any dizziness or unsteadiness - says that she lost her balance on top of the stool, causing her fall. She says that she had significant pain at this time and stayed on the ground for about 5 minutes before getting up. Not sure if she hit her head or not but she denies any LOC or double visiton. She has been ambulating after this but says she has been experiencing a lot of back pain since. Following her fall she reports a week of diarrhea in addition to various aches and pains in her arms and legs. Denies any recent travel, other illness, or hospital visits. Allergies: NKDA - Current Medication List Current Medications: Active Medications Albuterol/Ipratropium (Duoneb -) 1 amp NEB Q6H PRN PRN Reason: SHORTNESS OF BREATH Amlodipine Besylate (Norvasc -) 5 mg PO DAILY [facility] Last Admin: 03/07/17 09:56 Dose: 5 mg Atenolol (Tenormin -) 25 mg PO BID [facility] Last Admin: 03/07/17 21:46 Dose: 25 mg Atorvastatin Calcium (Lipitor -) 10 mg PO HS [facility] Last Admin: 03/07/17 21:46 Dose: 10 mg Budesonide/Formoterol Fumarate (Symbicort 160/4.5mcg -) 1 puff IH BID [facility] Last Admin: 03/07/17 21:46 Dose: 1 puff Duloxetine HCl (Cymbalta -) 90 mg PO DAILY [facility] Last Admin: 03/07/17 09:55 Dose: 90 mg Gabapentin (Neurontin -) 800 mg PO TID [facility] Last Admin: 03/07/17 21:46 Dose: 800 mg Insulin Aspart (Novolog Vial Sliding Scale -) 1 vial SQ ACHS [facility] PRN Reason: Protocol Last Admin: 03/07/17 21:48 Dose: 2 units Levothyroxine Sodium (Synthroid -) 50 mcg PO DAILY@0700 [facility] Last Admin: 03/07/17 06:11 Dose: 50 mcg Oxycodone HCl (Roxicodone -) 5 mg PO Q4H PRN PRN Reason: PAIN Last Admin: 03/07/17 20:39 Dose: 5 mg Warfarin Sodium (Coumadin -) 5 mg PO DAILY@1800 [facility] Last Admin: 03/07/17 17:15 Dose: 5 mg - Objective Vital Signs: Vital Signs Temperature 98.4 F 03/08/17 02:00 Pulse Rate 59 L 03/08/17 02:00 Respiratory Rate 18 03/08/17 02:00 Blood Pressure 138/71 03/08/17 02:00 O2 Sat by Pulse Oximetry (%) 94 L 03/07/17 21:00 Constitutional: Yes: No Distress Eyes: Yes: WNL HENT: Yes: WNL Neck: Yes: WNL Cardiovascular: Yes: Regular Rate and Rhythm, Murmur (2/6 systolic, LSB--apex), S1, S2 Gastrointestinal: Yes: Soft, Ascites ...Rectal Exam: Yes: Deferred Genitourinary: No: Anuria Breast(s): Yes: WNL Musculoskeletal: Yes: Back Pain, Muscle Pain Extremities: Yes: WNL Edema: No Peripheral Pulses WNL: Yes Integumentary: Yes: Bruising Neurological: Yes: Alert, Oriented, Weakness Psychiatric: Yes: Alert, Oriented Labs: CBC, BMP 03/07/17 13:25 03/07/17 05:35 INR, PTT INR 1.62 (0.82-1.09) H 03/07/17 05:35 Abnormal Lab Results 03/07/17 03/07/17 03/07/17 05:35 05:35 05:35 RBC 3.12 L Hgb 9.3 L Hct 26.9 L MPV PT with INR 18.30 H INR 1.62 H BUN 42 H Creatinine 1.9 H Random Glucose 139 H Calcium 7.9 L B-Natriuretic Peptide TSH 03/07/17 03/07/17 13:25 19:50 RBC 3.31 L Hgb 9.9 L Hct 28.3 L MPV 7.3 L PT with INR INR BUN Creatinine Random Glucose Calcium B-Natriuretic Peptide 8648.24 H TSH 4.03 H Problem List - Problems (1) Abnormal findings on imaging of biliary tract Assessment/Plan: anasarca; dilated CBD; ? pancreatic disease; ? neoplasm F/u with GI, ?oncologist. Code(s): R93.2 - ABNORMAL FINDINGS ON DX IMAGING OF LIVER AND BILIARY TRACT (2) Pancreatic lesion Assessment/Plan: f/u with GI, ?oncologist. Code(s): K86.9 - DISEASE OF PANCREAS, UNSPECIFIED (3) Acute on chronic diastolic (congestive) heart failure Assessment/Plan: On amlodipiine. F/u BUN/Cr (avoid excessive dehydration); electrolytes; daily weight; Is and Os. Consider adding ACEI, if cleared from renal viewpoint (HTN; DM; CHF); renal dysfunction: ?acute/chronic; ?prerenal. Code(s): I50.33 - ACUTE ON CHRONIC DIASTOLIC (CONGESTIVE) HEART FAILURE (4) CVA (cerebral vascular accident) Assessment/Plan: ?Hx AF Pt now remembers being told of having a "small hole in the back of my heart" in 1994 while at [facility]; she has been on warfarin since then. When questioned further , she believes it was an ASD. ASD not noted on present ECHO. Recommend continuing on warfarin. F/u past cardiac records. Repeat ECHO (may be done as outpatient); if bubble study is negative for ASD, would get LENA. Event recorder (outpatient). Code(s): I63.9 - CEREBRAL INFARCTION, UNSPECIFIED (5) HTN (hypertension) Assessment/Plan: on amlodipine; f/u BP serially. Add ACEI, if cleared by nephrology (HTN; DM; CHF). Code(s): I10 - ESSENTIAL (PRIMARY) HYPERTENSION (6) Cigarette nicotine dependence Assessment/Plan: the imperative need to stop was discussed. Consider nicotine patch, or one of the pills available (wellbutrin; Chantix). Code(s): F17.210 - NICOTINE DEPENDENCE, CIGARETTES, UNCOMPLICATED (7) Hematoma Assessment/Plan: vascular input noted; warfarin restarted. Code(s): T14.8XXA - OTHER INJURY OF UNSPECIFIED BODY REGION, INITIAL ENCOUNTER (8) Renal dysfunction Assessment/Plan: BUN 42/Cr 1.9. Pt with diastolic CHF. Renal artery aneurysm. F/u with nphrologist. Code(s): N28.9 - DISORDER OF KIDNEY AND URETER, UNSPECIFIED (9) Cervical spine disease Code(s): M48.9 - SPONDYLOPATHY, UNSPECIFIED (10) Diabetes Code(s): E11.9 - TYPE 2 DIABETES MELLITUS WITHOUT COMPLICATIONS (11) [place] cardiac risk >20% in next 10 years Assessment/Plan: multiple cardiac risks (DM; HTN; hyperlipidemia; CVA; postmenopausal; cigarettes ). Stress MIBI when stable (may be done as outpatient). Code(s): Z91.89 - OTH PERSONAL RISK FACTORS, NOT ELSEWHERE CLASSIFIED (12) Hyperlipidemia Assessment/Plan: f/u lipids on statin Code(s): E78.5 - HYPERLIPIDEMIA, UNSPECIFIED (13) Hypothyroid Assessment/Plan: mildly decreased TSH; f/u TFTs. Code(s): E03.9 - HYPOTHYROIDISM, UNSPECIFIED
[2017-03-08] MEDS: INSULIN SLIDING SCALE (NOVOLOG) 1 VIAL SQ SCH ×3 (06:22→16:32)
[2017-03-08] MEDS: LEVOTHYROXINE NA 50 MCG TABLET (FP) PO SCH (06:22)
[2017-03-08] MEDS: GABAPENTIN 400 MG CAPSULE (FP) PO SCH ×2 (06:22→14:12)
[2017-03-08] MEDS: oxyCODONE HCL 5 MG TABLET PO PRN ×2 (06:25→14:13)
[2017-03-08 07:22] LABS: MCHC 34.7 g/dl (32.0-36.0); MEAN CELL VOLUME 86.4 fl (80-96); MEAN PLT VOLUME 7.6 fl (7.5-11.1); PLATELET COUNT 434 K/MM3 (134-434); RDW 14.9 % (11.6-15.6); WHITE BLOOD COUNT 7.4 K/mm3 (4.0-10.0)
[2017-03-08 07:38] LABS: INR 1.39 (0.82-1.09); PROTHROMBIN TIME (PATIENT) 15.7 SEC (9.98-11.88)
[2017-03-08 07:48] LABS: ANION GAP 9 (8-16); CALCIUM 8.4 mg/dL (8.5-10.1); CO2 30 mmol/L (21-32); CREATININE 1.6 mg/dL (0.55-1.02); GLUCOSE,RANDOM 133 mg/dL (74-106)
--- NOTE | 2017-03-08 08:39 | PN ---
Progress Note, Physician History of Present Illness: Ms. Burnette is a 72 yo female with a significant past medical history of several prior strokes on coumadin, DM, HTN, and hypercholesterolemia who presents to the emergency department with a 3 day history of upper left leg pain she says occurs only when she moves. 1 week ago she reports falling from a stool on top of her bed while trying to clear a bug from the ceiling. Denies any dizziness or unsteadiness - says that she lost her balance on top of the stool, causing her fall. She says that she had significant pain at this time and stayed on the ground for about 5 minutes before getting up. Not sure if she hit her head or not but she denies any LOC or double visiton. She has been ambulating after this but says she has been experiencing a lot of back pain since. Following her fall she reports a week of diarrhea in addition to various aches and pains in her arms and legs. Denies any recent travel, other illness, or hospital visits. - Current Medication List Current Medications: Active Medications Albuterol/Ipratropium (Duoneb -) 1 amp NEB Q6H PRN PRN Reason: SHORTNESS OF BREATH Amlodipine Besylate (Norvasc -) 5 mg PO DAILY [facility] Last Admin: 03/07/17 09:56 Dose: 5 mg Atenolol (Tenormin -) 25 mg PO BID [facility] Last Admin: 03/07/17 21:46 Dose: 25 mg Atorvastatin Calcium (Lipitor -) 10 mg PO HS [facility] Last Admin: 03/07/17 21:46 Dose: 10 mg Budesonide/Formoterol Fumarate (Symbicort 160/4.5mcg -) 1 puff IH BID [facility] Last Admin: 03/07/17 21:46 Dose: 1 puff Duloxetine HCl (Cymbalta -) 90 mg PO DAILY [facility] Last Admin: 03/07/17 09:55 Dose: 90 mg Gabapentin (Neurontin -) 800 mg PO TID [facility] Last Admin: 03/08/17 06:22 Dose: 800 mg Insulin Aspart (Novolog Vial Sliding Scale -) 1 vial SQ ACHS [facility] PRN Reason: Protocol Last Admin: 03/08/17 06:22 Dose: Not Given Levothyroxine Sodium (Synthroid -) 50 mcg PO DAILY@0700 [facility] Last Admin: 03/08/17 06:22 Dose: 50 mcg Oxycodone HCl (Roxicodone -) 5 mg PO Q4H PRN PRN Reason: PAIN Last Admin: 03/08/17 06:25 Dose: 5 mg Warfarin Sodium (Coumadin -) 5 mg PO DAILY@1800 [facility] Last Admin: 03/07/17 17:15 Dose: 5 mg - Objective Vital Signs: Vital Signs Temperature 98.2 F 03/08/17 06:28 Pulse Rate 63 03/08/17 06:28 Respiratory Rate 18 03/08/17 06:28 Blood Pressure 171/72 03/08/17 06:28 O2 Sat by Pulse Oximetry (%) 94 L 03/07/17 21:00 Eyes: Yes: WNL, Conjunctiva Clear, EOM Intact HENT: Yes: WNL, Atraumatic, Normocephalic Neck: Yes: WNL, Supple, Trachea Midline Cardiovascular: Yes: WNL, Regular Rate and Rhythm Respiratory: Yes: WNL, Regular, CTA Bilaterally Gastrointestinal: Yes: WNL, Normal Bowel Sounds Genitourinary: Yes: WNL Musculoskeletal: Yes: WNL Extremities: Yes: WNL Edema: No Integumentary: Yes: WNL Neurological: Yes: WNL, Alert, Oriented ...Motor Strength: WNL Psychiatric: Yes: WNL Labs: CBC, BMP 03/08/17 06:00 03/08/17 06:00 INR, PTT INR 1.39 (0.82-1.09) H 03/08/17 06:00 Assessment/Plan - Problems (1) Abnormal findings on imaging of biliary tract Assessment/Plan: anasarca; dilated CBD; ? pancreatic disease; ? neoplasm F/u with GI, ?oncologist. Code(s): R93.2 - ABNORMAL FINDINGS ON DX IMAGING OF LIVER AND BILIARY TRACT (2) Pancreatic lesion Assessment/Plan: f/u with GI, ?oncologist. Code(s): K86.9 - DISEASE OF PANCREAS, UNSPECIFIED (3) Acute on chronic diastolic (congestive) heart failure Assessment/Plan: On amlodipiine. F/u BUN/Cr (avoid excessive dehydration); electrolytes; daily weight; Is and Os. Consider adding ACEI, if cleared from renal viewpoint (HTN; DM; CHF); renal dysfunction: ?acute/chronic; ?prerenal. Code(s): I50.33 - ACUTE ON CHRONIC DIASTOLIC (CONGESTIVE) HEART FAILURE (4) CVA (cerebral vascular accident) Assessment/Plan: ?Hx AF Pt now remembers being told of having a "small hole in the back of my heart" in 1994 while at [facility]; she has been on warfarin since then. When questioned further , she believes it was an ASD. ASD not noted on present ECHO. Recommend continuing on warfarin. F/u past cardiac records. Repeat ECHO (may be done as outpatient); if bubble study is negative for ASD, would get LENA. Event recorder (outpatient). Code(s): I63.9 - CEREBRAL INFARCTION, UNSPECIFIED (5) HTN (hypertension) Assessment/Plan: on amlodipine; f/u BP serially. Add ACEI, if cleared by nephrology (HTN; DM; CHF). Code(s): I10 - ESSENTIAL (PRIMARY) HYPERTENSION (6) Cigarette nicotine dependence Assessment/Plan: the imperative need to stop was discussed. Consider nicotine patch, or one of the pills available (wellbutrin; Chantix). Code(s): F17.210 - NICOTINE DEPENDENCE, CIGARETTES, UNCOMPLICATED (7) Hematoma Assessment/Plan: vascular input noted; warfarin restarted. Code(s): T14.8XXA - OTHER INJURY OF UNSPECIFIED BODY REGION, INITIAL ENCOUNTER (8) Renal dysfunction Assessment/Plan: BUN 42/Cr 1.9. Pt with diastolic CHF. Renal artery aneurysm. F/u with nphrologist. Code(s): N28.9 - DISORDER OF KIDNEY AND URETER, UNSPECIFIED (9) Cervical spine disease Code(s): M48.9 - SPONDYLOPATHY, UNSPECIFIED (10) Diabetes Code(s): E11.9 - TYPE 2 DIABETES MELLITUS WITHOUT COMPLICATIONS (11) [place] cardiac risk >20% in next 10 years Assessment/Plan: multiple cardiac risks (DM; HTN; hyperlipidemia; CVA; postmenopausal; cigarettes ). Stress MIBI when stable (may be done as outpatient). Code(s): Z91.89 - OTH PERSONAL RISK FACTORS, NOT ELSEWHERE CLASSIFIED (12) Hyperlipidemia Assessment/Plan: f/u lipids on statin Code(s): E78.5 - HYPERLIPIDEMIA, UNSPECIFIED (13) Hypothyroid Assessment/Plan: mildly decreased TSH; f/u TFTs. Code(s): E03.9 - HYPOTHYROIDISM, UNSPECIFIED
[2017-03-08] MEDS ORDERED: PT OWN MED DRAWER 7, Y5N ONE (08:41)
[2017-03-08] MEDS: amLODIPine BESYLATE 5 MG TABLET (FP) PO SCH ×2 (08:47→09:08)
[2017-03-08] MEDS: ATENOLOL 25 MG TABLET (FP) PO SCH ×2 (08:48→09:08)
[2017-03-08] MEDS: DULoxetine HCL 30 MG CAPSULE.DR (FP) PO SCH ×2 (08:48→09:08)
[2017-03-08 09:17] LABS: CHOLESTEROL 151 mg/dL (50-200)
[2017-03-08 09:18] LABS: FREE T4 0.91 ng/dl (0.76-1.46)
--- NOTE | 2017-03-08 10:49 | DS ---
Physical Exam: SUBJECTIVE: Patient seen and examined. No complaints, eating well, left thigh symptoms markedly improved. OBJECTIVE: Vital Signs Period Temp Pulse Resp BP Sys/Thao Pulse Ox Last 24 Hr 97.6 F-98.4 F 59-72 18-20 138-171/54-72 94-94 PHYSICAL EXAM General: sitting in bed in no acute distress, no dyspnea, no use of acessory muscles of respiration, Neck: soft, supple, no JVD ABdomen soft, NT, ND, positive bowel sounds Extremities - resolving left thigh hematoma with improved induration, warmth and tenderness, positive pulses bilaterally Chest CTAB, no basilar rales noted today Neuro AAOX3 LABS Laboratory Results - last 24 hr 03/07/17 03/07/17 03/07/17 11:22 13:25 16:31 WBC 8.2 RBC 3.31 L Hgb 9.9 L Hct 28.3 L MCV 85.7 MCH 29.9 MCHC 34.9 RDW 14.7 Plt Count 410 MPV 7.3 L PT with INR INR Sodium Potassium Chloride Carbon Dioxide Anion Gap BUN Creatinine POC Glucometer 178 281 Random Glucose Calcium B-Natriuretic Peptide Triglycerides Cholesterol Total LDL Cholesterol HDL Cholesterol TSH Free T4 03/07/17 03/07/17 03/08/17 19:50 21:44 06:00 WBC 7.4 RBC 3.46 L Hgb 10.4 L Hct 29.8 L MCV 86.4 MCH 30.0 MCHC 34.7 RDW 14.9 Plt Count 434 MPV 7.6 PT with INR INR Sodium Potassium Chloride Carbon Dioxide Anion Gap BUN Creatinine POC Glucometer 189 Random Glucose Calcium B-Natriuretic Peptide 8648.24 H Triglycerides Cholesterol Total LDL Cholesterol HDL Cholesterol TSH 4.03 H Free T4 03/08/17 03/08/17 03/08/17 06:00 06:00 06:00 WBC RBC Hgb Hct MCV MCH MCHC RDW Plt Count MPV PT with INR 15.70 H INR 1.39 H Sodium 141 Potassium 3.8 Chloride 102 Carbon Dioxide 30 Anion Gap 9 BUN 38 H Creatinine 1.6 H POC Glucometer Random Glucose 133 H Calcium 8.4 L B-Natriuretic Peptide Triglycerides 104 Cancelled Cholesterol 151 Cancelled Total LDL Cholesterol 82 Cancelled HDL Cholesterol 51 Cancelled TSH Free T4 0.91 03/08/17 03/08/17 06:00 06:14 WBC RBC Hgb Hct MCV MCH MCHC RDW Plt Count MPV PT with INR INR Sodium Potassium Chloride Carbon Dioxide Anion Gap BUN Creatinine POC Glucometer 143 Random Glucose Calcium B-Natriuretic Peptide Triglycerides Cholesterol Total LDL Cholesterol HDL Cholesterol TSH Free T4 Cancelled HOSPITAL COURSE: Date of Admission:03/02/17 Date of Discharge: 03/08/17 Minutes to complete discharge: 45 (plan discussed with patient in detail, all questions answered) Discharge Summary Reason For Visit: Fall Current Active Problems Abnormal findings on imaging of biliary tract (Acute) Left thigh hematoma Acute blood loss anemia JOSÉ 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 She had swellling with induration and extensive ecchymosis on her left leg but her vasculature was intact. She was noted with supratherapeutic INR and her coumadin was held. She had initial drop in her hemoglobin that stabilized around 7.7-8. She had repeat imaging showing persistent hematoma but difficult to compare size with the prior one. She received one unit PRBC with appropriate response, her Hemoglobin is 10.4 on discharge and her leg symptoms have markedly improved. She was seen by vascular surgery and recommended transfusion and cleared her to be resumed on coumadin. She was also noted with new dyspnea and hypoxia upto 87-88 on activity likely from acute on chronic diastolic CHF from volume resuscitation and anemia that resolved with gentle diuresis and blood transfusion. She is currently oxygenating well on room air. She received 2D echo that showed basal septal hypertrophy, moderate to severe mitral regurgitation, moderate to severe tricuspid regurgitation, mild to moderate aortic sclerosis and EF 78%. She also had CT chest with small pleural effusions but no acute concerns. She was also seen by cardiology and advised caution with diuretics, discontinued her digoxin. She was also noted with dilated common bile duct on abdominal CT, had MRCP showing extensive dilation of her CBD, pancreatic duct, which was unclear if was new malignant process vs from her prior pancreatic surgery. She had normal LFTs and no abdominal symptoms. Gastroenterology was consulted and she is advised outpatient follow up for EUS with fine needle aspiration, which has been discussed with the patient. She had transient bump in her creatinine that improved after holding her lasix. She had intermittent episodes of elevated BP that improved with increase in norvasc and atenolol. For her diabetes, patient's metformin is held on discharge. She will be continued on her lantus and humalog sliding scale with outpatient follow up. Her coumadin was resumed once active bleed concerns were ruled out. She will need close monitoring of her INR outpatient. GIven active bleed concerns and ongoing hematoma, bridging with heparin was avoided. She was evaluated by physical therapy and will be discharged home with services. Condition: Improved - Instructions Diet, Activity, Other Instructions: RECOMMENDATIONS: -You were admitted with bleeding in your thigh which as stabilized. You are advise follow up blood work (CBC) with your doctor in 1 week. -You were also found with dilatation of your common bile duct (tube in gall bladder) and had MRI, you were seen by gastroenterology and will need outpatient EUS with fine needle aspiration (endoscopic ultrasound), please follow up with your database coordinator in 1 week. -TAKE COUMADIN 5 MG TODAY AND TOMORROW, HAVE INR CHECK WITH YOUR DOCTOR ON Friday03/11/2017 AND FURTHER DOSING DIRECTED BY HIM. -You will be going home with services. -Blood work to check your kidneys in 1 week (Chem-7) -You will need further testing for the hole in your heart with your staff genetic counselor. -You may resume your normal daily activities and diet. -Please only take oxycodone as needed for now which you have tolerated well during your hospital stay. Hold oxycontin for now. Avoid multiple narcotics and sedatives as they can increase risk of falls. Do not take them if sleepy, dizzy or drowsy, and avoid driving, operating heavy machinery or taking important decisions alone while on these medications. -Hold your metformin. continue your home humalog sliding scale and lantus 12 units as bedtime as directed and check fasting blood sugar checks before meals and at bedtime, notify your doctor if < 75 or persistently > 200 or any reading > 400 noted. -Home BP monitoring till your doctor visit. Notify doctor if SBP (upper BP) < 100 or persistently > 140 or any dizziness noted. MEDICATIONS: -You metformin and oxycontin have been held on discharge. -PLease continue oxycodone 10 mg twice daily as needed for pain and follow up with your doctor. -Your etodolac has been stopped. -Your digoxin has been stopped by your staff genetic counselor and your atenolol has been increased to 25 mg twice daily (script has been provided). -Your norvasc has been increased to 10 mg daily. -You will also be given new Atenolol prescription. FOLLOW-UPS: -Dr. Campos within 1 week to discuss further evaluation of the enlarged common bile duct, including additional imaging and possible biopsy needed. -Dr. Orellana within 1 week to discuss your kidney function -Dr. Reich within 1 week for further evaluation of your heart function -Dr. Layne (your PCP) in 1 week. INR check on 03/11/2017 with your doctor. CBC, chem-7 with your doctor in 1 week Please return to the ED if your symptoms worsen, you fall, or have signs of bleeding, increase in thigh redness, pain, weakness, trouble breathing etc Referrals: Rito Campos MD [Staff Physician] - Mukesh Reich MD [Staff Physician] - Elias Orellana MD [Staff Physician] - Disposition: VNS/HOME HEALTH CARE - Home Medications Comprehensive Discharge Medication List: Ambulatory Orders Amlodipine Besylate 5 mg PO DAILY 02/28/17 Duloxetine HCl [Cymbalta] 30 mg PO DAILY 02/28/17 Duloxetine HCl [Cymbalta] 60 mg PO DAILY 02/28/17 Gabapentin 800 mg PO TID 02/28/17 Levocetirizine Dihydrochloride 5 mg PO DAILY 02/28/17 Warfarin Sodium [Coumadin] 5 mg PO DAILY 02/28/17 Atorvastatin Ca [Lipitor] 10 mg PO HS 03/04/17 Levothyroxine [Synthroid -] 50 mcg PO DAILY 03/04/17 Oxycodone HCl 10 mg PO BID PRN 03/04/17 Albuterol Sulfate [Proair Respiclick] 90 mcg IH Q4H PRN 03/08/17 Atenolol [Tenormin -] 25 mg PO BID #60 tablet 03/08/17 Insulin Glargine,Hum.rec.anlog [Lantus (10mL VIAL) -] 12 units SQ HS 03/08/17 Insulin Lispro [Humalog] 1 unit SQ AC 03/08/17 Olopatadine HCl 0.1% Ophth Kaitlin [Patanol (Nf)] 1 drop IO BID 03/08/17 Problem List - Problems (1) Traumatic hematoma of thigh Code(s): S70.10XA - CONTUSION OF UNSPECIFIED THIGH, INITIAL ENCOUNTER (2) Acute blood loss anemia Code(s): D62 - ACUTE POSTHEMORRHAGIC ANEMIA (3) Warfarin-induced coagulopathy Code(s): D68.9 - COAGULATION DEFECT, UNSPECIFIED T45.515A - ADVERSE EFFECT OF ANTICOAGULANTS, INITIAL ENCOUNTER (4) Acute on chronic diastolic (congestive) heart failure Code(s): I50.33 - ACUTE ON CHRONIC DIASTOLIC (CONGESTIVE) HEART FAILURE (5) Acute kidney injury Code(s): N17.9 - ACUTE KIDNEY FAILURE, UNSPECIFIED (6) Diabetes Code(s): E11.9 - TYPE 2 DIABETES MELLITUS WITHOUT COMPLICATIONS This patient is new to me today: No Emergency Visit: No Critical Care patient: No - Discharge Referral Referred to [facility] No
[2017-03-08] MEDS: BUDESONIDE/FORMETEROL FUMARATE 160/4.5 mcg INHALER IH SCH (11:00)
[2017-03-08 11:28] VITALS: PULSE 61
[2017-03-08 11:31] VITALS: TEMP 98
[2017-03-08] MEDS ORDERED: ACETAMINOPHEN 325 MG TABLET (FP) PO PRN (11:41)
[2017-03-08] MEDS ORDERED: amLODIPine BESYLATE 5 MG TABLET (FP) PO ONE (11:46)
[2017-03-08 16:59] VITALS: BP 147/62
[2017-03-08] MEDS: WARFARIN NA 5 MG TABLET (UD) PO SCH (17:01)
--- NOTE | 2017-03-09 09:08 | EKG ---
Test Reason : Blood Pressure : / mmHG Vent. Rate : 062 BPM Atrial Rate : 062 BPM P-R Int : 156 ms QRS Dur : 086 ms QT Int : 426 ms P-R-T Axes : 065 037 058 degrees QTc Int : 432 ms NORMAL SINUS RHYTHM NORMAL ECG WHEN COMPARED WITH ECG OF 28-FEB-2017 12:47, NO SIGNIFICANT CHANGE WAS FOUND Confirmed by DENIA RAE MD ([id number]) on 03/09/2017 9:07:55 AM Referred By: Vinicio TRAN Confirmed By:DENIA RAE MD
== END 2017-03-08 18:45 | disposition home health service (06) | DRG 813 ==
LOC: JER 11:35 → JERBED 16:48 → J5S 18:22 → OBSVTOIN 03-02 14:53 → J4S 03-06 21:29
PROVIDERS: ADMIT Internal Medicine; ATTEND Hospitalist
PROC: 30233N1 Transfusion of Nonautologous Red Blood Cells into Peripheral Vein, Percutaneous Approach (ICD-10-PCS; principal; 2017-03-06)
DX: D68.32 Hemorrhagic disorder due to extrinsic circulating anticoagulants (principal); I50.33 Acute on chronic diastolic (congestive) heart failure; N17.9 Acute kidney failure, unspecified; M62.82 Rhabdomyolysis; D62 Acute posthemorrhagic anemia; S70.12XA Contusion of left thigh, initial encounter; E11.9 Type 2 diabetes mellitus without complications; E78.00 Pure hypercholesterolemia, unspecified; Z86.73 Personal history of transient ischemic attack (TIA), and cerebral infarction without residual deficits; F17.210 Nicotine dependence, cigarettes, uncomplicated; E83.42 Hypomagnesemia; K83.9 Disease of biliary tract, unspecified; E86.0 Dehydration; I35.0 Nonrheumatic aortic (valve) stenosis; I34.0 Nonrheumatic mitral (valve) insufficiency; I36.1 Nonrheumatic tricuspid (valve) insufficiency; K86.9 Disease of pancreas, unspecified; M48.8X2 Other specified spondylopathies, cervical region; N18.3 Chronic kidney disease, stage 3 (moderate); E03.9 Hypothyroidism, unspecified; T45.515A Adverse effect of anticoagulants, initial encounter; I72.2 Aneurysm of renal artery; W17.89XA Other fall from one level to another, initial encounter; Y93.89 Activity, other specified; Y92.092 Bedroom in other non-institutional residence as the place of occurrence of the external cause; Y99.8 Other external cause status
CPT/HCPCS: 36415; 36430; 70450-TC; 71010-TC; 71101-TC; 71250-TC; 72125-TC; 72192-TC; 73590-TC-LT; 73700-TC-RT; 74176-TC; 74181-TC; 76705-TC; 80048; 80053; 80061; 80076; 80162; 81003; 81015; 82436; 82550; 82553; 82570; 82728; 83036; 83540; 83550; 83690; 83721; 83735; 83880; 84100; 84133; 84156; 84300; 84439; 84443; 85025; 85027; 85610; 85730; 86850; 86900; 86901; 86922; 87040; 87077; 87086; 93005; 93010; 93306-TC; 93971-TC; 94010; 94640; 94761; 97116-GP; 97161-GP; 99285-25; G0378; P9038; P9058

== ENCOUNTER 2017-04-10 21:10 | Emergency (ER) | payer MEDICARE, OTHER ==
[2017-04-10 21:21] VITALS: BMI 20.7
--- NOTE | 2017-04-10 21:23 | PDOC ---
Rapid Medical Evaluation Chief Complaint: Blood Pressure Problem Time Seen by Provider: 04/10/17 21:18 Medical Evaluation: Allergies Allergy/AdvReac Type Severity Reaction Status Date / Time amoxicillin Allergy Severe Swelling Verified 03/02/17 17:48 Pt presents with complaint of : c/o hypertension, no home meds for 4 days. + nausea, " i just don't feel right." denies chest pain, dizziness, nausea. History of hypertension, hypothyroidism, insulin dependent diabetes. On brief exam: Patient alert ox3, I have ordered the following: cardiac work up, ua, VBG Pt will go to the Emergency Dept for further workup. patient was taken inside ER for further management of care 04/10/17 21:18
[2017-04-10 22:03] LABS: VENOUS PH 7.38 (7.32-7.42)
[2017-04-10 22:04] LABS: VENOUS BLOOD GAS HCO3 31.7 meq/L (19-25)
[2017-04-10 22:07] LABS: BASOPHIL 1.3 % (0-2.0); EOSINOPHIL 3.2 % (0-4.5); MCH 29.8 pg (25.7-33.7); MCHC 33.8 g/dl (32.0-36.0); MEAN CELL VOLUME 88.1 fl (80-96); MEAN PLT VOLUME 7.6 fl (7.5-11.1); NEUTROPHILS 63.1 % (42.8-82.8); PLATELET COUNT 250 K/MM3 (134-434); RDW 15.5 % (11.6-15.6); WHITE BLOOD COUNT 5.8 K/mm3 (4.0-10.0)
--- NOTE | 2017-04-10 22:24 | PDOC ---
History of Present Illness - General History Source: Patient Exam Limitations: No Limitations - History of Present Illness Initial Comments: 04/10/17 22:52 The patient is a 72 year old female with a significant PMH of HTN, hyperlipidemia, diabetes, AL, and prior stroke (on Coumadin) who presents to the emergency department with nausea and complains of feeling sick for the past four days. The patient came to visit [facility] four days ago and has been unable to take BP meds. Her most recent BP was 160/103. The patient denies chest pain, shortness of breath, headache and dizziness. Denies fever, chills, vomit, diarrhea and constipation. Allergies: Amoxicillin Social history: Current smoker. No reported alcohol or drug use. <Sherice Whitehead - Last Filed: 04/10/17 22:52> - General History Source: Patient <Chirag Daley - Last Filed: 04/11/17 06:23> - General Chief Complaint: Blood Pressure Problem Stated Complaint: BLOOD PRESSURE Time Seen by Provider: 04/10/17 21:18 Past History <Sherice Whitehead - Last Filed: 04/10/17 22:52> - Past Medical History CVA: Yes COPD: No Diabetes: Yes GI Disorders: Yes HTN: Yes Hypercholesterolemia: Yes - Surgical History Abdominal Surgery: Yes (pancreatic.) - Suicide/Smoking/Psychosocial Hx Smoking History: Current some day smoker Number of Cigarettes Smoked Daily: 3 Information on smoking cessation initiated: No Hx Alcohol Use: No Drug/Substance Use Hx: No <Chirag Daley - Last Filed: 04/11/17 06:23> - Past Medical History Allergies/Adverse Reactions: Allergies Allergy/AdvReac Type Severity Reaction Status Date / Time amoxicillin Allergy Severe Swelling Verified 03/02/17 17:48 Home Medications: Ambulatory Orders Duloxetine HCl [Cymbalta] 30 mg PO DAILY 02/28/17 Duloxetine HCl [Cymbalta] 60 mg PO DAILY 02/28/17 Gabapentin 800 mg PO TID 02/28/17 Levocetirizine Dihydrochloride 5 mg PO DAILY 02/28/17 Insulin Glargine,Hum.rec.anlog [Lantus (10mL VIAL) -] 12 units SQ HS 03/08/17 Insulin Lispro [Humalog] 1 unit SQ AC 03/08/17 Albuterol Sulfate [Proair Respiclick] 90 mcg IH Q4H PRN #1 aer.pow.ba 04/11/17 Amlodipine Besylate [Norvasc -] 10 mg PO DAILY #30 tablet 04/11/17 Atenolol [Tenormin -] 25 mg PO BID #60 tablet 04/11/17 Atorvastatin Ca [Lipitor] 10 mg PO HS #30 tablet 04/11/17 Levothyroxine [Synthroid -] 50 mcg PO DAILY #30 tablet 04/11/17 Olopatadine HCl 0.1% Ophth Kaitlin [Patanol (Nf)] 1 drop IO BID #1 dropsbtl Oxycodone HCl 10 mg PO BID PRN #20 tablet MDD 20 04/11/17 Warfarin Sodium [Coumadin] 5 mg PO DAILY #30 tablet 04/11/17 Review of Systems - Review of Systems Able to Perform ROS?: Yes Comments:: 04/10/17 22:55 CONSTITUTIONAL: Absent: fever, no chills, no fatigue EYES: Absent: visual changes ENT: Absent: ear pain, no sore throat CARDIOVASCULAR: Absent: chest pain, no palpitations RESPIRATORY: Absent: cough, no SOB GI: Absent: abdominal pain, no vomiting, no constipation, no diarrhea Present: nausea GENITOURINARY: Absent: dysuria, no frequency, no hematuria MUSKULOSKELETAL: Absent: back pain, no arthralgia, no myalgia SKIN: Absent: rash NEURO: Absent: headache <Charley,Sherice - Last Filed: 04/10/17 22:52> *Physical Exam - Vital Signs Last Vital Signs Temp Pulse Resp BP Pulse Ox 97.4 F L 88 19 160/103 99 04/10/17 21:19 04/10/17 21:19 04/10/17 21:19 04/10/17 21:19 04/10/17 21:19 - Physical Exam Comments: 04/10/17 22:56 GENERAL: Well developed, well nourished. Awake and alert. No acute distress. HEENT: Normocephalic, atraumatic. PERRLA, EOMI. No conjunctival pallor. Sclera are non- icteric. Moist mucous membranes. Oropharynx is clear. NECK: Supple. Full ROM. No JVD. Carotid pulses 2+ and symmetric, without bruits. No thyromegaly. No lymphadenopathy. CARDIOVASCULAR: (+) Irregular rate. Regular rhythm. No murmurs, rubs, or gallops. Distal pulses are 2+ and symmetric. PULMONARY: No evidence of respiratory distress. Lungs clear to auscultation bilaterally. No wheezing, rales or rhonchi. ABDOMEN: Soft. Non-tender. Non-distended. No rebound or guarding. No organomegaly. Normoactive bowel sounds. MUSCULOSKELETAL Normal range of motion at all joints. No bony deformities or tenderness. No CVA tenderness. EXTREMITIES: No cyanosis. No clubbing. No edema. No calf tenderness. SKIN: Warm and dry. Normal capillary refill. No rashes. No jaundice. NEUROLOGICAL: Alert, awake, appropriate. Cranial nerves 2-12 intact. No gross or motor deficits in the in face, upper extremities and lower extremities. PSYCHIATRIC: Cooperative. Good eye contact. Appropriate mood and affect. <Sherice Whitehead - Last Filed: 04/10/17 22:52> - Vital Signs Last Vital Signs Temp Pulse Resp BP Pulse Ox 97.4 F L 88 19 160/103 99 04/10/17 21:19 04/10/17 21:19 04/10/17 21:19 04/10/17 21:19 04/10/17 21:19 <Chirag Daley - Last Filed: 04/11/17 06:23> Heart Score/ECG Review #1 04/10/17 22:38 EKG performed at [21:58] demonstrates rate of [80], Normal sinus rhythm. Anterior infarct, age undetermined. Abnormal ECG. <Sherice Whitehead - Last Filed: 04/10/17 22:52> ED Treatment Course - LABORATORY CBC & Chemistry Diagram: 04/10/17 21:51 04/10/17 21:51 - ADDITIONAL ORDERS Additional order review: Laboratory Results 04/10/17 21:51 VBG pH 7.38 POC VBG pCO2 55.4 H POC VBG pO2 29.5 Mixed VBG HCO3 31.7 H 04/10/17 21:51 RBC 3.99 MCV 88.1 MCHC 33.8 RDW 15.5 MPV 7.6 Neutrophils % 63.1 Lymphocytes % 24.1 Monocytes % 8.3 Eosinophils % 3.2 Basophils % 1.3 <Sherice Whitehead - Last Filed: 04/10/17 22:52> - LABORATORY CBC & Chemistry Diagram: 04/10/17 21:51 04/10/17 21:51 - ADDITIONAL ORDERS Additional order review: Laboratory Results 04/10/17 21:51 VBG pH 7.38 POC VBG pCO2 55.4 H POC VBG pO2 29.5 Mixed VBG HCO3 31.7 H 04/10/17 21:51 RBC 3.99 MCV 88.1 MCHC 33.8 RDW 15.5 MPV 7.6 Neutrophils % 63.1 Lymphocytes % 24.1 Monocytes % 8.3 Eosinophils % 3.2 Basophils % 1.3 <Chirag Daley - Last Filed: 04/11/17 06:23> Medical Decision Making - Medical Decision Making 04/11/17 05:00 BP 131/66 04/11/17 06:22 Pt feels better. BP improve. Will discharge. Dr. Daley: The scribe's documentation has been prepared under my direction and personally reviewed by me in its entirery. I confirm that the note above accurately reflects all work, treatment, procedures, and medical decision making performed by me. <Chirag Daley - Last Filed: 04/11/17 06:23> *DC/Admit/Observation/Transfer - Attestations Scribe Attestion: 04/10/17 23:01 Documentation prepared by Sherice Whitehead, acting as medical or surgical instrument maker for Chirag Daley DO. <Sherice Whitehead - Last Filed: 04/10/17 22:52> <Chirag Daley - Last Filed: 04/11/17 06:23> - Prescriptions Prescriptions: Albuterol Sulfate [Proair Respiclick] 90 mcg IH Q4H PRN #1 aer.pow.ba PRN Reason: Asthma Amlodipine Besylate [Norvasc -] 10 mg PO DAILY #30 tablet Atenolol [Tenormin -] 25 mg PO BID #60 tablet Atorvastatin Ca [Lipitor] 10 mg PO HS #30 tablet Levothyroxine [Synthroid -] 50 mcg PO DAILY #30 tablet Olopatadine HCl 0.1% Ophth Kaitlin [Patanol (Nf)] 1 drop IO BID #1 dropsbtl Oxycodone HCl 10 mg PO BID PRN #20 tablet MDD 20 PRN Reason: Pain Warfarin Sodium [Coumadin] 5 mg PO DAILY #30 tablet
[2017-04-10 22:31] LABS: INR 0.98 (0.82-1.09); PROTHROMBIN TIME (PATIENT) 11.1 SEC (9.98-11.88)
[2017-04-10] MEDS ORDERED: ONDANSETRON *ODT* 4 MG TABLET SL ONE (22:38)
[2017-04-10] MEDS ORDERED: ONDANSETRON *ODT* 4 MG TABLET ONE (22:39)
[2017-04-10 22:42] LABS: ANION GAP 6 (8-16); BILIRUBIN,TOTAL 0.5 mg/dL (0.2-1.0); CO2 33 mmol/L (21-32); CREATININE 1.3 mg/dL (0.55-1.02); GLUCOSE,RANDOM 186 mg/dL (74-106); MAGNESIUM 1.8 mg/dL (1.8-2.4); SGOT/AST 19 U/L (15-37); SGPT/ALT 15 U/L (12-78)
[2017-04-10 22:44] LABS: ALK PHOS 112 U/L (45-117); CPK 173 IU/L (26-192); TROPONIN I 0.04 ng/ml (0.00-0.05)
[2017-04-10] MEDS ORDERED: ACETAMINOPHEN 325 MG TABLET (FP) PO ONE (23:04)
[2017-04-10] MEDS ORDERED: ACETAMINOPHEN 325 MG TABLET (FP) ONE (23:12)
[2017-04-11] MEDS ORDERED: hydrALAZINE HCL 20 MG/ML VIAL IVPUSH ONE ×2 (00:18→03:47)
[2017-04-11] MEDS ORDERED: hydrALAZINE HCL 20 MG/ML VIAL ONE ×2 (00:47→03:51)
[2017-04-11 01:19] VITALS: TEMP 98.3
[2017-04-11] MEDS ORDERED: METOPROLOL TARTRATE 5 MG/5 ML VIAL IVPUSH ONE (02:28)
[2017-04-11] MEDS ORDERED: METOPROLOL TARTRATE 5 MG/5 ML VIAL ONE (02:43)
[2017-04-11 06:19] LABS: TROPONIN I 0.05 ng/ml (0.00-0.05)
[2017-04-11 06:38] VITALS: BP 137/69; PULSE 84
--- NOTE | 2017-04-11 10:05 | EKG ---
Test Reason : Blood Pressure : / mmHG Vent. Rate : 080 BPM Atrial Rate : 080 BPM P-R Int : 144 ms QRS Dur : 084 ms QT Int : 408 ms P-R-T Axes : 079 058 078 degrees QTc Int : 470 ms NORMAL SINUS RHYTHM ANTERIOR INFARCT , AGE UNDETERMINED ABNORMAL ECG Confirmed by NILTON LAKE MD ([id number]) on 04/11/2017 10:04:43 AM Referred By: Confirmed By:NILTON LAKE MD
== END 2017-04-11 06:38 | disposition home or self-care (01) ==
LOC: JER 21:10
PROC: 3E033GC Introduction of Other Therapeutic Substance into Peripheral Vein, Percutaneous Approach (ICD-10-PCS; principal; 2017-04-10)
DX: R51 Headache (principal); I10 Essential (primary) hypertension
CPT/HCPCS: 36415; 71020-TC; 80053; 82550; 82553; 82803; 83735; 84484; 85025; 85610; 93005; 93010; 99285-25